=== PATIENT | female | born 1955 | race Caucasian/White ===

== ENCOUNTER 2017-06-18 18:07 | Observation (INO) | payer OTHER ==
[~2017-06-18] VITALS: Ht 152.4 cm; Wt 50.0 kg
[~2017-06-18 18:07] MED LIST: ASPI81TA82 PO; DIPH25 PO; IBUP800 PO; LEVO.15 PO; PRAV40TA2 PO; ZOLO50TA PO
[2017-06-18 18:09] VITALS: BP 154/74; PULSE 76; RESP 15; TEMP 98.6; O2SAT 99
[2017-06-18 18:56] LABS: AUTOMATED NEUTROPHIL # 9.4 TH/MM3 (1.8-7.7); BASOPHIL % 0.3 % (0.0-2.0); EOSINOPHIL % 0.3 % (0.0-4.0); HEMATOCRIT 42.9 % (35.0-46.0); HEMOGLOBIN 15.1 GM/DL (11.6-15.3); LYMPHOCYTE # 1.2 TH/MM3 (1.0-4.8); MEAN CELL VOLUME 94.9 FL (80.0-100.0); MEAN CORPUSCULAR HEMOGLOBIN 33.3 PG (27.0-34.0); MEAN CORPUSCULAR HGB CONC 35.1 % (32.0-36.0); MEAN PLATELET VOLUME 7.5 FL (7.0-11.0); MONO % 3.5 % (0.0-8.0); MONOCYTE # 0.4 TH/MM3 (0-0.9); NEUT % 84.9 % (16.0-70.0); PLATELET COUNT 311 TH/MM3 (150-450); RED BLOOD COUNT 4.53 MIL/MM3 (4.00-5.30)
[2017-06-18 19:07] LABS: ALBUMIN 4.4 GM/DL (3.4-5.0); AST (GOT) 21 U/L (15-37); BICARBONATE 29.4 MEQ/L (21.0-32.0); BLOOD UREA NITROGEN 14 MG/DL (7-18); CALCIUM 8.9 MG/DL (8.5-10.1); CHLORIDE 100 MEQ/L (98-107); CREATININE 0.85 MG/DL (0.50-1.00); GLOMERULAR FILTRATION RATE 67 ML/MIN (>89); GLUCOSE,RANDOM 93 MG/DL (74-106); SODIUM (NA) 135 MEQ/L (136-145)
[2017-06-18 19:09] LABS: ALT (GPT) 25 U/L (10-53)
[2017-06-18 19:12] LABS: ALKALINE PHOSPHATASE 62 U/L (45-117); TOTAL BILIRUBIN ADULT 0.3 MG/DL (0.2-1.0); TOTAL PROTEIN 8.9 GM/DL (6.4-8.2); TROPONIN I LESS THAN 0.02 NG/ML (0.02-0.05)
--- NOTE | 2017-06-18 19:26 | RADRPT ---
EXAM DATE/TIME: 06/18/2017 18:44 [place] COMPARISON: No previous studies available for comparison. INDICATIONS : Evaluate chest, right arm pain with redness and rash MEDICAL HISTORY : None. SURGICAL HISTORY : None. ENCOUNTER: Initial ACUITY: 1 day PAIN SCORE: 0/10 LOCATION: chest FINDINGS: No prior study for comparison. There is a nodule or focal airspace disease in right upper lobe measur ing about 2 cm in diameter. Surgical clips in right axillary region. Left lung is clear. No effusion. No pneumothorax the heart size is normal. CONCLUSION: 1. Nodule or focal airspace disease right upper lobe. Further evaluation with chest CT recommended. L eft lung is clear. Tor Mas MD on June 18, 2017 at 19:23 Board Certified Radiologist. This report was verified electronically.
[2017-06-18 19:54] VITALS: BP 149/68; PULSE 89; RESP 16; TEMP 100.6; O2SAT 99
--- NOTE | 2017-06-18 20:11 | PD ---
HPI Chief Complaint: Medical Clearance Time Seen by Provider: 20:06 Travel History International Travel<30 days: No Contact w/Intl Traveler<30days: No Traveled to known affect area: No History of Present Illness HPI The patient is a 62 year old female who presents to the [facility] emergency department with a history of not feeling well for a couple of days.She reports having increased fatigue. She reports having twitching sensations in her chest muscles. She has had increased difficulty sleeping. At lunch time, she began to have right upper arm pain that moved into her forearm as the day progressed. The pain is a dull aching sensation. She was concerned that this could be cardiac in origin as she has a family history of heart disease. She reports that her last stress test was done approximately 10 years ago. The Patient reports that she does have a history of hypertension and hyperlipidemia. She had a flu shot in the left arm on Sunday. She has had a history of lymph node resection of the left arm 04/1999 related to breast cancer s/p bilateral mastectomy. She has had some sweating. She reports that she has had a cellulitis involving the right arm in the past. She realized when she arrived in the emergency department that she has redness and swelling to the right arm. 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 Incidentally, the patient additionally reports that she is recently had an increase in her thyroid hormone supplementation related to a low TSH. She reports that she over the last couple of weeks has had intermittent sweating thought to be related to this. The patient on arrival is also noted to be febrile. I review systems otherwise, the patient denies having any cough, congestion, neck pain, shortness of breath, abdominal pain, vomiting, diarrhea, urinary symptoms, or neurologic symptoms. The patient incidentally reports that she has dental cleanings every 4 months. She last had a dental cleaning 3 months ago. PCP: Dr. Shanks. FH: [place]. Mother-50s [place], Father- CAD started in his 40s. PFSH Past Medical History Narrative Medical The patient's past medical history is significant for hypothyroidism, breast CA , chronic neck pain, anxiety and depression, Hyperlipidemia, hypertension, insomnia. Cancer: Yes (18 YRS AGO) High Cholesterol: Yes Diminished Hearing: No Hypertension: Yes Influenza Vaccination: Yes : 2 Para: 2 Tubal Ligation: Yes Past Surgical History Narrative Surgical The patient's past surgical history is significant for cholecystectomy, bilateral mastectomy, lymph node resection in the right axilla, , and tonsillectomy. Section: Yes (X 1) Cholecystectomy: Yes Mastectomy: Yes (BILATERAL WITH RECONSTRUCTIVE) Tonsillectomy: Yes Social History Alcohol Use: Yes (WINE WEEKLY) Tobacco Use: No (QUIT 1988) Substance Use: No Allergies-Medications (Allergen,Severity, Reaction): Coded Allergies: No Known Allergies (Unverified Allergy, Unknown, 06/18/17) Reported Meds & Prescriptions Reported Meds & Active Scripts Active Reported Enalapril (Enalapril Maleate) 5 Mg Tab 5 Mg PO DAILY Synthroid (Levothyroxine Sodium) 175 Mcg Tab 175 Mcg PO DAILY Sertraline (Sertraline HCl) 100 Mg Tab 100 Mg PO DAILY Review of Systems Except as stated in HPI: all other systems reviewed are Neg General / Constitutional: Positive: Fever Eyes: No: Visual changes HENT: No: Headaches Cardiovascular: Positive: Chest Pain or Discomfort, Diaphoresis, No: Dyspnea on exertion Respiratory: No: Cough, Shortness of Breath Gastrointestinal: No: Nausea, Vomiting, Diarrhea, Abdominal Pain Genitourinary: No: Dysuria Musculoskeletal: No: Pain Skin: No Rash Neurologic: No: Weakness Psychiatric: No: Depression Endocrine: No: Polydipsia Hematologic/Lymphatic: No: Easy Bruising Physical Exam Narrative General: The patient is a well-developed well-nourished female, flushed appearing on examination with redness her cheeks. Head and Neck exam: Head is normocephalic atraumatic. Eyes: EOMI, pupils are equal round and reactive to light. Nose: Midline septum with pink mucous membranes Mouth: Dentition unremarkable. Moist mucus membranes. Posterior oropharynx is not erythematous. No tonsillar hypertrophy. Uvula midline. Airway patent. Neck: No palpable lymphadenopathy. No nuchal rigidity. No thyromegaly. Cardiovascular: Regular rate and rhythm with a 1/6 systolic murmur. No gallops or rubs. Lungs: Clear to auscultation bilaterally. No wheezes, rhonchi, or rales. Abdomen: Soft, without tenderness to palpation in all 4 quadrants of the abdomen. No guarding, rebound, or rigidity. Normal bowel sounds are audible. No tenderness on palpation of McBurney's point. Extremities: No clubbing, cyanosis, or edema involving all 4 extremities, except the area of interest, the right upper extremity. The patient is noted to have erythema along the medial aspect of her right arm above the elbow that extends past her elbow and it is also involving the dorsal aspect of the right forearm. There is warmth to this area on palpation. There is no crepitus or step-off. No pointing. 2+ pulses in all 4 extremities. Back: No spinous process tenderness to palpation. No costovertebral angle tenderness to palpation. Neurologic Exam: Grossly nonfocal. Skin Exam: No other rash noted. Intact skin that is warm and dry. Data Data Last Documented VS Vital Signs Date Time Temp Pulse Resp B/P (MAP) Pulse Ox O2 Delivery O2 Flow Rate FiO2 06/18/17 19:57 16 06/18/17 19:54 100.6 89 149/68 (95) 99 Room Air Orders Orders Electrocardiogram (06/18/17 18:19) Ckmb (Isoenzyme) Profile (06/18/17 18:19) Complete Blood Count With Diff (06/18/17 18:19) Comprehensive Metabolic Panel (06/18/17 18:19) Magnesium (Mg) (06/18/17 18:19) Prothrombin Time / Inr (Pt) (06/18/17 18:19) Act Partial Throm Time (Ptt) (06/18/17 18:19) Troponin I (06/18/17 18:19) Chest, Pa & Lat (06/18/17 18:19) CKMB (06/18/17 18:35) CKMB% (06/18/17 18:35) Thyroid Stimulating Hormone (06/18/17 20:21) Acetaminophen (Tylenol) (06/18/17 20:30) Cefazolin 2 Gm Premix (Ancef 2 Gm Premix (06/18/17 20:30) Sodium Chlorid 0.9% 500 Ml Inj (Ns 500 M (06/18/17 20:30) Lactic Acid Sepsis Protocol (06/18/17 20:30) Blood Culture (06/18/17 20:30) Piperacil-Tazo 3.375 Gm Premix (Zosyn 3. (06/18/17 20:30) Vancomycin Inj (Vancomycin Inj) (06/18/17 20:30) Ct Thorax/ Chest W Iv Contrast (06/18/17 20:38) Sodium Chlor 0.9% 1000 Ml Inj (Ns 1000 M (06/18/17 21:00) Admit Order (Ed Use Only) (06/18/17 20:58) Labs Laboratory Tests Test 06/18/17 18:35 06/18/17 20:37 06/18/17 20:46 White Blood Count 11.0 TH/MM3 Red Blood Count 4.53 MIL/MM3 Hemoglobin 15.1 GM/DL Hematocrit 42.9 % Mean Corpuscular Volume 94.9 FL Mean Corpuscular Hemoglobin 33.3 PG Mean Corpuscular Hemoglobin Concent 35.1 % Red Cell Distribution Width 13.0 % Platelet Count 311 TH/MM3 Mean Platelet Volume 7.5 FL Neutrophils (%) (Auto) 84.9 % Lymphocytes (%) (Auto) 11.0 % Monocytes (%) (Auto) 3.5 % Eosinophils (%) (Auto) 0.3 % Basophils (%) (Auto) 0.3 % Neutrophils # (Auto) 9.4 TH/MM3 Lymphocytes # (Auto) 1.2 TH/MM3 Monocytes # (Auto) 0.4 TH/MM3 Eosinophils # (Auto) 0.0 TH/MM3 Basophils # (Auto) 0.0 TH/MM3 CBC Comment DIFF FINAL Differential Comment Prothrombin Time 10.0 SEC Prothromb Time International Ratio 1.0 RATIO Activated Partial Thromboplast Time 23.9 SEC Blood Urea Nitrogen 14 MG/DL Creatinine 0.85 MG/DL Random Glucose 93 MG/DL Total Protein 8.9 GM/DL Albumin 4.4 GM/DL Calcium Level 8.9 MG/DL Magnesium Level 2.0 MG/DL Alkaline Phosphatase 62 U/L Aspartate Amino Transf (AST/SGOT) 21 U/L Alanine Aminotransferase (ALT/SGPT) 25 U/L Total Bilirubin 0.3 MG/DL Sodium Level 135 MEQ/L Potassium Level 3.6 MEQ/L Chloride Level 100 MEQ/L Carbon Dioxide Level 29.4 MEQ/L Anion Gap 6 MEQ/L Estimat Glomerular Filtration Rate 67 ML/MIN Total Creatine Kinase 185 U/L Creatine Kinase MB 1.8 NG/ML Troponin I LESS THAN 0.02 NG/ML Thyroid Stimulating Hormone 3rd Gen 2.420 uIU/ML Lactic Acid Level 0.9 mmol/L MDM Medical Decision Making Medical Screen Exam Complete: Yes Emergency Medical Condition: Yes Medical Record Reviewed: Yes Interpretation(s) Last Impressions Chest CT 06/18/172037 Signed Impressions: Service Date/Time: Sunday, June 18, 2017 21:10 - CONCLUSION: 1. 2.2 x 1.7 cm irregular nodule right upper lobe. Differential diagnosis includes malignancy. This may be amenable to CT-guided biopsy. Tor Mas MD Chest X-Ray 06/18/171818 Signed Impressions: Service Date/Time: Sunday, June 18, 2017 18:44 - CONCLUSION: 1. Nodule or focal airspace disease right upper lobe. Further evaluation with chest CT recommended. Left lung is clear. Tor Mas MD Differential Diagnosis Cellulitis, versus erysipelas, versus zoster, versus bacteremia, versus endocarditis, versus hyperthyroid Narrative Course During the course of the patients emergency department visit, the patients history, examination, and differential diagnosis were reviewed with the patient. The patient was placed on a harmonica maker with oximetry and frequent blood pressure monitoring. The patient had IV access obtained and blood work sent for analysis. The patient was initially provided Zosyn 3.375 g IV, vancomycin 1 g IV, normal saline IV fluids were started. The patient is given Tylenol for fever. The patients laboratory studies were reviewed and remarkable for a white count of 11, hemoglobin 15.1, platelets 311 with 84.9, CMP is remarkable for sodium of 135, GFR 67, CPK 185, and BP 1.8, troponin I less than 0.02, PT 10, PTT 23.9 , lactic acid is 0.9. Radiology studies were reviewed and remarkable for a chest x-ray that shows a nodule or focal airspace disease in the right upper lobe of the lung, further evaluation with chest CT is recommended. Left lung is clear. A CT scan of the thorax was ordered. CT scan of the thorax reveals a 2.2 x 1.7 cm irregular nodule in the right upper lobe of the lung, differential diagnosis includes malignancy. This may be amenable to CT-guided biopsy. The patient's results were discussed with the patient, including the plan of care. I explained that further testing and/ or monitoring is indicated based on the patients history, examination, and/ or laboratory findings. Therefore, I recommended admission for additional evaluation. The patient expressed understanding and was agreeable with this plan. The patient was admitted to the hospital in stable condition and sent to a bed under the care of the [facility] service. Physician Communication Physician Communication The patient's case including history, pertinent physical examination findings, and laboratory studies were discussed with Dr. Chau. It was agreed that the patient would be admitted to the [facility] service. Diagnosis Primary Impression: Cellulitis of arm, right Additional Impressions: Lung nodule, solitary Heart murmur previously undiagnosed Admitting Information Admitting Physician Requests: it Krista Brody MD Jun 18, 2017 20:11
[2017-06-18] MEDS ORDERED: PIPERACIL-TAZO 3.375 GM PREMIX 50 ML IV ONE (20:30)
[2017-06-18] MEDS ORDERED: ceFAZolin 2 GM PREMIX 50 ML IV ONE (20:30)
[2017-06-18] MEDS ORDERED: ACETAMINOPHEN 325 MG TAB PO ONE (20:30)
[2017-06-18] MEDS ORDERED: SODIUM CHLORID 0.9% 500 ML INJ 500 ML IV ONE (20:30)
[2017-06-18] MEDS ORDERED: VANCOMYCIN INJ 1,000 MG in SODIUM CHLOR 0.9% 250 ML INJ 250 ML IV ONE (20:30)
[2017-06-18] MEDS ORDERED: IOHEXOL 350 MG/ML 10 ML VIAL (for RAD DIAG) IVCONTRAST ONE ×2 (21:01→21:21)
--- NOTE | 2017-06-18 21:15 | HHI.HP ---
HPI Service [facility] Hospitalists Primary Care Physician Rick Shanks MD Admission Diagnosis Chief Complaint: RUE pain, LGF, atypical right sided chest pain Travel History International Travel<30 Days: No Contact w/Intl Traveler <30 Da: No Traveled to Known Affected Are: No History of Present Illness The patient is a 62 year old female with depression, hypothyroidism hyperlipidemia and distant history of breast cancer who presents to the [facility] emergency department with a history of not feeling well for a couple of days.She reports having increased fatigue. She reports having twitching sensations in her right sided chest muscles. She has had increased difficulty sleeping. At lunch time today, she began to have right upper arm pain that moved into her forearm as the day progressed. The pain is a dull aching sensation. She was concerned that this could be cardiac in origin as she has a family history of heart disease. She reports that her last stress test was done approximately 10 years ago. She had a flu shot in the left arm on Sunday. She has had a history of lymph node resection of the right arm 04/1999 related to breast cancer s/p bilateral mastectomy. She has had some sweating. She reports that she has had a cellulitis involving the right arm in the past. She realized when she removed her shirt after she arrived in the emergency department that she has redness and swelling to the right arm. 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 Incidentally, the patient additionally reports that she is recently had an increase in her thyroid hormone supplementation. She reports that she over the last couple of weeks has had intermittent sweating thought to be related to this. Denies cough or shortness of breath. The patient on arrival is also noted to be febrile. The patient incidentally reports that she has dental cleanings every 4 months. She last had a dental cleaning 3 1/2 months ago. Denies any recent major dental work. Denies IV drug abuse history. Review of Systems Constitutional: COMPLAINS OF: Diaphoretic episodes, Fatigue, Fever, Chills Eyes: DENIES: Blurred vision, Diplopia, Eye inflammation, Eye pain, Vision loss , Photosensitivity, Double Vision Ears, nose, mouth, throat: DENIES: Tinnitus, Hearing loss, Vertigo, Nasal discharge, Oral lesions, Throat pain, Hoarseness, Ear Pain, Running Nose, Epistaxis, Sinus Pain, Toothache, Odynophagia Respiratory: DENIES: Apneas, Cough, Snoring, Wheezing, Hemoptysis, Sputum production, Shortness of breath Cardiovascular: COMPLAINS OF: Chest pain, DENIES: Palpitations, Syncope, Dyspnea on Exertion, PND, Lower Extremity Edema, Orthopnea, Claudication Gastrointestinal: DENIES: Abdominal pain, Black stools, Bloody stools, BRB per rectum, Constipation, Diarrhea, GERD, Nausea, Reflux, Vomiting, Difficulty Swallowing, Anorexia, See HPI Musculoskeletal: DENIES: Joint pain, Muscle aches, Stiffness, Joint Swelling, Back pain, Neck pain Integumentary: COMPLAINS OF: Rash Immunologic/allergic: DENIES: Eczema, Urticaria Neurologic: DENIES: Abnormal gait, Headache, Localized weakness, Paresthesias, Seizures, Speech Problems, Tremor, Poor Balance Psychiatric: COMPLAINS OF: Anxiety Past Family Social History Past Medical History Stage I breast cancer diagnosed in 1998 Hypertension Chronic neck pain Hyperlipidemia Hypothyroidism Anxiety Past Surgical History Carpal tunnel surgery on the left and 2003, on the right in 2004 Bilateral mastectomies in 1998 with right-sided lymph node dissection with all 20 nodes negative Reconstruction bilateral breast 1999 Cholecystectomy 1993 bilateral tubal ligation 1993 1982 tonsillectomy 1960 Colonoscopy 2013 which was negative Reported Medications Benadryl 25 Mg Cap (Diphenhydramine Hcl) 25 Mg Cap 25 Mg PO DAILY Motrin 800 Mg Tab (Ibuprofen) 800 Mg Tab 800 Mg PO BID Aspir-81 (Aspirin) 81 Mg Tab 81 Mg PO DAILY Zoloft (Sertraline HCl) 100 Mg Tab PO DAILY Synthroid (Levothyroxine Sodium) 175 Mcg Tab PO DAILY Pravachol 40 Mg Tab (Pravastatin Sodium) 40 Mg Tab 40 Mg PO DAILY Temazepam 15-30 mg daily at bedtime when necessary Allergies: Coded Allergies: No Known Allergies (Unverified Allergy, Unknown, 06/18/17) Family History Father had diabetes and coronary artery disease Mother had coronary artery disease and lung cancer Social History No tobacco since 1982 prior to that smoked about a pack per day for 10 years Occasionally drinks alcohol in the form of wine on the weekends Denies illicit drug use, specifically no history of IV drug abuse Lives with her 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 SKIN: Erythematous confluence patch with a few surrounding papules in the right medial arm and forearm along what appears to be a dermatomal distribution. Tenderness to palpation noted. No open wounds or discharge. HEAD: Atraumatic. Normocephalic. No temporal or scalp tenderness. EYES: Pupils equal round and reactive. Extraocular motions intact. No scleral icterus. No injection or drainage. ENT: Nose without bleeding, purulent drainage or septal hematoma. Airway patent. Oropharynx clear. Dentition in good repair. NECK: Trachea midline. No JVD or lymphadenopathy. Supple, nontender, no meningeal signs. CARDIOVASCULAR: Regular rate and rhythm with 2 out of 6 primarily holosystolic ejection murmur along the left sternal border, no gallop or rub. RESPIRATORY: Clear to auscultation. Breath sounds equal bilaterally. No wheezes , rales, or rhonchi. GASTROINTESTINAL: Abdomen soft, non-tender, nondistended. No hepato-splenomegaly , or palpable masses. No guarding. MUSCULOSKELETAL: Extremities without clubbing, cyanosis, or edema. No joint tenderness, effusion, or edema noted. No calf tenderness. NEUROLOGICAL: Awake and alert. Cranial nerves II through XII intact. Motor and sensory grossly within normal limits. Five out of 5 muscle strength in all muscle groups. Normal speech. Laboratory Laboratory Tests Test 06/18/17 18:35 White Blood Count 11.0 Red Blood Count 4.53 Hemoglobin 15.1 Hematocrit 42.9 Mean Corpuscular Volume 94.9 Mean Corpuscular Hemoglobin 33.3 Mean Corpuscular Hemoglobin Concent 35.1 Red Cell Distribution Width 13.0 Platelet Count 311 Mean Platelet Volume 7.5 Neutrophils (%) (Auto) 84.9 Lymphocytes (%) (Auto) 11.0 Monocytes (%) (Auto) 3.5 Eosinophils (%) (Auto) 0.3 Basophils (%) (Auto) 0.3 Neutrophils # (Auto) 9.4 Lymphocytes # (Auto) 1.2 Monocytes # (Auto) 0.4 Eosinophils # (Auto) 0.0 Basophils # (Auto) 0.0 CBC Comment DIFF FINAL Differential Comment Prothrombin Time 10.0 Prothromb Time International Ratio 1.0 Activated Partial Thromboplast Time 23.9 Blood Urea Nitrogen 14 Creatinine 0.85 Random Glucose 93 Total Protein 8.9 Albumin 4.4 Calcium Level 8.9 Magnesium Level 2.0 Alkaline Phosphatase 62 Aspartate Amino Transf (AST/SGOT) 21 Alanine Aminotransferase (ALT/SGPT) 25 Total Bilirubin 0.3 Sodium Level 135 Potassium Level 3.6 Chloride Level 100 Carbon Dioxide Level 29.4 Anion Gap 6 Estimat Glomerular Filtration Rate 67 Total Creatine Kinase 185 Creatine Kinase MB 1.8 Troponin I LESS THAN 0.02 Result Diagram: 06/18/17183406/18/171834 Imaging Last 72 hours Impressions Chest X-Ray 06/18/171818 Signed Impressions: Service Date/Time: Sunday, June 18, 2017 18:44 - CONCLUSION: 1. Nodule or focal airspace disease right upper lobe. Further evaluation with chest CT recommended. Left lung is clear. Tor Mas MD Caprini VTE Risk Assessment Caprini VTE Risk Assessment: Mod/High Risk (score >= 2) Caprini Risk Assessment Model Point Value = 1 Point Value = 2 Point Value = 3 Point Value = 5 Age 41-60 Minor surgery BMI > 25 kg/m2 Swollen legs Varicose veins or History of unexplained or recurrent spontaneous Oral contraceptives or hormone replacement Sepsis (< 1 month) Serious lung disease, including pneumonia (< 1 month) Abnormal pulmonary function Acute myocardial infarction Congestive heart failure (< 1 month) History of inflammatory bowel disease Medical patient at bed rest Age 61-74 Arthroscopic surgery Major open surgery (> 45 min) Laparoscopic surgery (> 45 min) Malignancy Confined to bed (> 72 hours) Immobilizing plaster cast Central venous access Age >= 75 History of VTE Family history of VTE Factor V Leiden Prothrombin [id number] Lupus anticoagulant Anticardiolipin antibodies Elevated serum homocysteine Heparin-induced thrombocytopenia Other congenital or acquired thrombophilia Stroke (< 1 month) Elective arthroplasty Hip, pelvis, or leg fracture Acute spinal cord injury (< 1 month) Prophylaxis Regimen Total Risk Factor Score Risk Level Prophylaxis Regimen 0-1 Low Early ambulation 2 Moderate Order ONE of the following: *Sequential Compression Device (SCD) *Heparin 5000 units SQ BID 3-4 Higher Order ONE of the following medications: *Heparin 5000 units SQ TID *Enoxaparin/Lovenox 40 mg SQ daily (WT < 150 kg, CrCl > 30 mL/min) *Enoxaparin/Lovenox 30 mg SQ daily (WT < 150 kg, CrCl > 10-29 mL/min) *Enoxaparin/Lovenox 30 mg SQ BID (WT < 150 kg, CrCl > 30 mL/min) AND/OR *Sequential Compression Device (SCD) 5 or more Highest Order ONE of the following medications: *Heparin 5000 units SQ TID (Preferred with Epidurals) *Enoxaparin/Lovenox 40 mg SQ daily (WT < 150 kg, CrCl > 30 mL/min) *Enoxaparin/Lovenox 30 mg SQ daily (WT < 150 kg, CrCl > 10-29 mL/min) *Enoxaparin/Lovenox 30 mg SQ BID (WT < 150 kg, CrCl > 30 mL/min) AND *Sequential Compression Device (SCD) Assessment and Plan Problem List: (1) Cellulitis of arm, right ICD Codes: L03.113 - Cellulitis of right upper limb Status: Acute Plan: Question of etiology. She has been placed on broad-spectrum IV antibiotics initially. She does have what appears slightly dermatomal distribution of this rash with some vesicles on the outer margins which are tender to palpation. Provide dose of Valtrex. White blood cell count normal. Low-grade fever noted. Other labs pending. (2) Febrile illness ICD Codes: R50.9 - Fever, unspecified Status: Acute Plan: Questionable etiology. She does have abnormality on lung imaging is well and CT scan has been ordered by ER physician. Other labs pending. She has a slight murmur which is apparently new for her. We'll check echo although I am not strongly suspicious of endocarditis based on her clinical exam. (3) Hypothyroidism ICD Codes: E03.9 - Hypothyroidism, unspecified Status: Chronic Plan: Recent increase of Synthroid 175 g a day. Repeat TSH pending. (4) Hypertension ICD Codes: I10 - Essential (primary) hypertension Status: Chronic Plan: Continue medication. (5) Hyperlipidemia ICD Codes: E78.5 - Hyperlipidemia, unspecified Status: Chronic Plan: Continue medication Code Status full Discussed Condition With Patient, her and ER provider. Physician Certification 2 Midnight Certification Type: Admission for Inpatient Services Order for Inpatient Services The services are ordered in accordance with Medicare regulations or non- Medicare payer requirements, as applicable. In the case of services not specified as inpatient-only, they are appropriately provided as inpatient services in accordance with the 2-midnight benchmark. Estimated LOS (days): 2 days is the estimated time the patient will need to remain in the hospital, assuming treatment plan goals are met and no additional complications. Post-Hospital Plan: Home Problem Qualifiers (1) Hypertension: Qualified Codes: I10 - Essential (primary) hypertension Michael Chau MD PhD Jun 18, 2017 21:15
[2017-06-18] MEDS ORDERED: POTASSIUM CHLORIDE 10 MEQ CONTROLLED RELEASE TAB PO ONE (21:30)
[2017-06-18] MEDS ORDERED: Vancomycin Consult Pharmacy 1 EA OTHER SCH (21:30)
[2017-06-18] MEDS: SODIUM CHLOR 0.9% 1000 ML INJ 1,000 ML IV SCH (21:36)
--- NOTE | 2017-06-18 21:38 | RADRPT ---
EXAM DATE/TIME: 06/18/2017 21:10 [facility] COMPARISON: No previous studies available for comparison. INDICATIONS : Right upper lobe nodule versus mass. IV CONTRAST: 70 cc Omnipaque 350 (iohexol) IV RADIATION DOSE: 5.10 CTDIvol (mGy) MEDICAL HISTORY : Hypertension. Carcinoma, breast. SURGICAL HISTORY : Mastectomy, bilateral. ENCOUNTER: Initial ACUITY: 1 day PAIN SCALE: 0/10 LOCATION: Right chest TECHNIQUE: Volumetric scanning of the chest was performed. Using automated exposure control and adjustment of t mA and/or kV according to patient size, radiation dose was kept as low as reasonably achievable to obtain optimal diagnostic quality images. DICOM format image data is available electronically for review and comparison. Follow-up recommendations for detected pulmonary nodules are based at a minimum on nodule size and pa tient risk factors according to Fleischner Society Guidelines. FINDINGS: There is a 2.2 x 1.7 cm irregular mass in the right upper lobe, suspicious for malignancy. There is no hilar or, mediastinal or axillary adenopathy. No pleural or pericardial effusion. There i s previous right axillary lymph node dissection. Previous breast augmentation. No acute findings in t upper abdomen. Previous cholecystectomy. CONCLUSION: 1. 2.2 x 1.7 cm irregular nodule right upper lobe. Differential diagnosis includes malignancy. This m ay be amenable to CT-guided biopsy. Tor Mas MD on June 18, 2017 at 21:32 Board Certified Radiologist. This report was verified electronically.
[2017-06-18 21:39] VITALS: BP 122/58; PULSE 79; RESP 16; O2SAT 98
[2017-06-18] MEDS ORDERED: SERT-129 PO (21:40)
[2017-06-18] MEDS ORDERED: ENAL5TAB PO (21:44)
[2017-06-18] MEDS ORDERED: SYNT175T PO (21:44)
[2017-06-18] MEDS: valACYclovir HCL 500 MG TAB PO SCH (22:00)
[2017-06-18] MEDS ORDERED: TEMAZEPAM 15 MG CAP PO PRN (22:00)
[2017-06-19 00:02] VITALS: BP 120/58; PULSE 76; RESP 20; TEMP 99.5; O2SAT 95
[2017-06-19 04:00] VITALS: BP 111/64; PULSE 79; RESP 20; TEMP 99.8; O2SAT 96
[2017-06-19] MEDS: LEVOTHYROXINE SODIUM 25 MCG TAB PO SCH (07:39)
[2017-06-19] MEDS: LEVOTHYROXINE SODIUM 150 MCG TAB PO SCH (07:39)
[2017-06-19 08:00] VITALS: BP 115/59; PULSE 78; RESP 16; TEMP 99.2; O2SAT 95
[2017-06-19] MEDS: valACYclovir HCL 500 MG TAB PO SCH ×2 (08:26→22:47)
[2017-06-19] MEDS: ENALAPRIL MALEATE 5 MG TAB PO SCH (08:27)
[2017-06-19] MEDS: SODIUM CHLOR 0.9% 1000 ML INJ 1,000 ML IV SCH (08:27)
[2017-06-19] MEDS: ACETAMINOPHEN 500 MG CPLT PO PRN ×2 (08:40→22:46)
[2017-06-19] MEDS ORDERED: NON-FORMULARY DRUG (Levothyroxine (Synthroid) 175 MCG) PO SCH (09:00)
[2017-06-19] MEDS ORDERED: SERTRALINE HCL 100 MG TAB PO SCH (09:00)
--- NOTE | 2017-06-19 10:32 | HHI.PR ---
Subjective Remarks Patient seen resting in bed with family member at bedside Patient and family member feel that the redness has gotten much better RUE continues to be tender to the touch Objective Vitals Vital Signs Date Time Temp Pulse Resp B/P (MAP) Pulse Ox O2 Delivery O2 Flow Rate FiO2 06/19/17 08:00 99.2 78 16 115/59 (77) 95 06/19/17 04:00 99.8 79 20 111/64 (80) 96 06/19/17 00:02 99.5 76 20 120/58 (78) 95 06/18/17 22:25 06/18/17 21:39 79 16 122/58 (79) 98 Room Air 06/18/17 19:57 16 06/18/17 19:54 100.6 89 16 149/68 (95) 99 Room Air 06/18/17 18:09 98.6 76 15 154/74 (100) 99 Result Diagram: 06/18/17 1835 06/18/17 1835 Other Results Laboratory Tests Test 06/18/17 18:35 06/18/17 20:37 06/18/17 20:46 06/19/17 10:04 White Blood Count 11.0 TH/MM3 Red Blood Count 4.53 MIL/MM3 Hemoglobin 15.1 GM/DL Hematocrit 42.9 % Mean Corpuscular Volume 94.9 FL Mean Corpuscular Hemoglobin 33.3 PG Mean Corpuscular Hemoglobin Concent 35.1 % Red Cell Distribution Width 13.0 % Platelet Count 311 TH/MM3 Mean Platelet Volume 7.5 FL Neutrophils (%) (Auto) 84.9 % Lymphocytes (%) (Auto) 11.0 % Monocytes (%) (Auto) 3.5 % Eosinophils (%) (Auto) 0.3 % Basophils (%) (Auto) 0.3 % Neutrophils # (Auto) 9.4 TH/MM3 Lymphocytes # (Auto) 1.2 TH/MM3 Monocytes # (Auto) 0.4 TH/MM3 Eosinophils # (Auto) 0.0 TH/MM3 Basophils # (Auto) 0.0 TH/MM3 CBC Comment DIFF FINAL Differential Comment Prothrombin Time 10.0 SEC Prothromb Time International Ratio 1.0 RATIO Activated Partial Thromboplast Time 23.9 SEC Blood Urea Nitrogen 14 MG/DL Creatinine 0.85 MG/DL Random Glucose 93 MG/DL Total Protein 8.9 GM/DL Albumin 4.4 GM/DL Calcium Level 8.9 MG/DL Magnesium Level 2.0 MG/DL Alkaline Phosphatase 62 U/L Aspartate Amino Transf (AST/SGOT) 21 U/L Alanine Aminotransferase (ALT/SGPT) 25 U/L Total Bilirubin 0.3 MG/DL Sodium Level 135 MEQ/L Potassium Level 3.6 MEQ/L Chloride Level 100 MEQ/L Carbon Dioxide Level 29.4 MEQ/L Anion Gap 6 MEQ/L Estimat Glomerular Filtration Rate 67 ML/MIN Total Creatine Kinase 185 U/L Creatine Kinase MB 1.8 NG/ML Troponin I LESS THAN 0.02 NG/ML Thyroid Stimulating Hormone 3rd Gen 2.420 uIU/ML Lactic Acid Level 0.9 mmol/L Imaging Last 72 hours Impressions Chest X-Ray 06/18/171818 Signed Impressions: Service Date/Time: Sunday, June 18, 2017 18:44 - CONCLUSION: 1. Nodule or focal airspace disease right upper lobe. Further evaluation with chest CT recommended. Left lung is clear. Tor Mas MD Objective Remarks GENERAL: This is a well-nourished, well-developed patient, in no apparent distress. SKIN: Erythematous confluence patch in the right medial arm and forearm along what appears to be a dermatomal distribution. Tenderness to palpation noted. No open wounds or discharge. CARDIOVASCULAR: Regular rate and rhythm 2/6 murmur noted RESPIRATORY: Clear to auscultation. Breath sounds equal bilaterally. GASTROINTESTINAL: Abdomen soft, non-tender, nondistended. Normal active bowel sounds MUSCULOSKELETAL: Extremities without clubbing, cyanosis, or edema. NEURO: Alert & Oriented x4 to person, place, time, situation. Moves all ext x4 A/P Problem List: (1) Cellulitis of arm, right ICD Codes: L03.113 - Cellulitis of right upper limb Status: Acute Plan: Cellulitis of arm, right Question of etiology. She has been placed on broad-spectrum IV antibiotics initially. She does have what appears slightly dermatomal distribution of this rash with some vesicles on the outer margins which are tender to palpation. Provide dose of Valtrex. White blood cell count normal. Low-grade fever noted. Febrile illness Questionable etiology. She does have abnormality on lung imaging is well and CT scan has been ordered by ER physician. She has a slight murmur which is apparently new for her. We'll check echo although I am not strongly suspicious of endocarditis based on her clinical exam. Blood cultures negative x [address] chest Chest CT reviewed and reveals: 2.2x1.7 cm irregular nodule right upper lobe. Differential diagnosis includes malignancy. This may be amenable to CT guided biopsy. Consult Dr. Griffith Results discussed with patient and at bedside. Results also discussed with patient's oncologist Dr. Shanks Will obtain CT abdomen/pelvic to further evaluate. then proceed with bx. Hypothyroidism Recent increase of Synthroid 175 g a day. Repeat TSH 2.42 Hypertension Continue medication. Hyperlipidemia Continue medication (2) Febrile illness ICD Codes: R50.9 - Fever, unspecified Status: Acute Plan: see above (3) Hypothyroidism ICD Codes: E03.9 - Hypothyroidism, unspecified Status: Chronic Plan: see above (4) Hypertension ICD Codes: I10 - Essential (primary) hypertension Status: Chronic Plan: See above (5) Hyperlipidemia ICD Codes: E78.5 - Hyperlipidemia, unspecified Status: Chronic Plan: see above Problem Qualifiers (1) Hypertension: Qualified Codes: I10 - Essential (primary) hypertension Katherine Lopes Jun 19, 2017 10:32
[2017-06-19 11:31] LABS: ALKALINE PHOSPHATASE 48 U/L (45-117); ALT (GPT) 18 U/L (10-53); AST (GOT) 14 U/L (15-37); BICARBONATE 21.8 MEQ/L (21.0-32.0); BLOOD UREA NITROGEN 8 MG/DL (7-18); CALCIUM 7.8 MG/DL (8.5-10.1); CHLORIDE 105 MEQ/L (98-107); CREATININE 0.91 MG/DL (0.50-1.00); GLOMERULAR FILTRATION RATE 62 ML/MIN (>89); GLUCOSE,RANDOM 175 MG/DL (74-106); SODIUM (NA) 139 MEQ/L (136-145); TOTAL BILIRUBIN ADULT 0.2 MG/DL (0.2-1.0); TOTAL PROTEIN 6.6 GM/DL (6.4-8.2)
--- NOTE | 2017-06-19 11:51 | EKG ---
Date Performed: 06/18/2017 Time Performed: 18:28:58 PTAGE: 62 years EKG: Sinus rhythm NORMAL ECG Compared to prior tracing no significant change PREVIOUS TRACING : 04/08/1999 09.31 DOCTOR: Asher Brody Interpretating Date/Time 06/19/2017 11:51:06
[2017-06-19 12:00] VITALS: BP 97/54; PULSE 73; RESP 16; TEMP 98.5; O2SAT 97
[2017-06-19] MEDS ORDERED: PRAV40TA2 PO (13:57)
--- NOTE | 2017-06-19 15:12 | ECHRPT ---
Indication: murm/fever CONCLUSIONS The left ventricular systolic function is normal with an estimated ejection fraction in the range of 55-60%. Normal left ventricular size. [id number] mitral valve regurgitation. Aortic valve sclerosis is present. There is mild tricuspid valve regurgitation. The estimated pulmonary arterial pressure is 41 mmHg. BP: / HR: Rhythm: MEASUREMENTS (Male / Female) Normal Values Technical Quality:Good 2D ECHO LV Diastolic Diameter PLAX 4.0 cm 4.2 - 5.9 / 3.9 - 5.3 cm LV Systolic Diameter PLAX 3.0 cm IVS Diastolic Thickness 1.3 cm 0.6 - 1.0 / 0.6 - 0.9 cm LVPW Diastolic Thickness 0.9 cm 0.6 - 1.0 / 0.6 - 0.9 cm LV Relative Wall Thickness 0.5 RV Internal Dim ED PLAX 2.7 cm M-MODE Aortic Root Diameter MM 3.0 cm LA Systolic Diameter MM 3.0 cm LA Ao Ratio MM 1.0 AV Cusp Separation MM 1.7 cm DOPPLER Mitral E Point Velocity 88.4 cm/s Mitral A Point Velocity 85.4 cm/s Mitral E to A Ratio 1.0 LV E' Lateral Velocity 8.8 cm/s Mitral E to LV E' Lateral Ratio 10.1 LV E' Septal Velocity 9.8 cm/s Mitral E to LV E' Septal Ratio 9.1 TR Peak Velocity 276.0 cm/s TR Peak Gradient 30.5 mmHg Right Atrial Pressure 10.0 mmHg Pulmonary Artery Systolic Pressu 40.5 mmHg Right Ventricular Systolic Press 40.5 mmHg FINDINGS LEFT VENTRICLE The left ventricular systolic function is normal with an estimated ejection fraction in the range of 55-60%. Normal left ventricular size. RIGHT VENTRICLE Normal right ventricular size and systolic function. LEFT ATRIUM The left atrial size is normal. RIGHT ATRIUM The right atrial size is normal. ATRIAL SEPTUM Normal atrial septal thickness without atrial level shunting by limited color doppler interrogation. AORTA The aortic root and proximal ascending aorta are normal in size on limited imaging. MITRAL VALVE Structurally normal mitral valve. [id number] mitral valve regurgitation. AORTIC VALVE Trileaflet aortic valve. No aortic valve regurgitation. Aortic valve sclerosis is present. TRICUSPID VALVE Structurally normal tricuspid valve. There is mild tricuspid valve regurgitation. The estimated pulmonary arterial pressure is 40.5 mmHg. PULMONARY VALVE No pulmonary valve regurgitation or stenosis. VESSELS The inferior vena cava is normal in size. PERICARDIUM No pericardial effusion. Julee Chahal MD, FACC (Electronically Signed) Final Date:19 June 2017 15:11
[2017-06-19] MEDS ORDERED: POTASSIUM CHLORIDE 10 MEQ CONTROLLED RELEASE TAB PO ONE (15:30)
[2017-06-19 16:00] VITALS: BP 125/69; PULSE 71; RESP 16; TEMP 98.5; O2SAT 97
[2017-06-19] MEDS: 1/2 NS + KCL 20 MEQ INJ 1,000 ML IV SCH (16:21)
[2017-06-19] MEDS ORDERED: DIATRIZOATE MEGLUM/DIATRIZOATE SOD 9 ML CUP PO ONE (16:30)
[2017-06-19 20:00] VITALS: BP 128/70; PULSE 68; RESP 18; TEMP 100.7; O2SAT 97
[2017-06-19] MEDS ORDERED: VANCOMYCIN INJ 750 MG in SODIUM CHLOR 0.9% 250 ML INJ 250 ML IV SCH (21:00)
--- NOTE | 2017-06-19 21:26 | MB ---
cc: LUX MORGAN MD DATE OF CONSULTATION 06/19/17 REASON FOR CONSULTATION History of breast cancer with cellulitis right arm and area of nodularity in the right lung. PATIENT PROFILE The patient is a 60-year white female. She is . She has two children, a son and daughter. She was born [facility]. 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 She has not smoked for 30 years and had smoked in the past for approximately 20 years, half-a-pack a day. Alcohol intake is social. HISTORY OF PRESENT ILLNESS The patient is a 60-year-old female who I saw many years ago for breast cancer and became her primary care physician. She had bilateral mastectomies in 1998. The right breast contained an invasive lobular carcinoma. Lymph nodes were negative, approximate tumor size 1.6 cm. She received four cycles of Adriamycin and Taxotere and subsequently tamoxifen and then Arimidex. She has had no evidence of recurrent breast cancer. She has a history of hypothyroidism on Synthroid, and elevated cholesterol and takes Pravastatin. She has had problems with depression and uses Sertraline. Her immediate problem dates back to about 24 hours ago. She noted right upper arm and vague right chest discomfort. She has been under a great deal of pressure, and thought that she might be having a heart attack. She went to the emergency room and, on examination, was found to have a cellulitis of the right arm. She underwent a routine chest x-ray on 06/18/2017 as part of her workup and was found to have a nodule or focal airspace disease in the right upper lobe. A CT of the thorax was recommended and done on 06/18/2017. This shows a 2.2 x 1.7 cm irregular mass in the right upper lobe which is felt to be suspicious for malignancy. There was no evidence of adenopathy. She has bilateral chest wall implants following her mastectomies. She has had no history of cough, shortness of breath or sputum production to suggest a respiratory tract infection. Approximately four years ago, she had a PET scan done when there was a question of recurrent disease and there was nothing in the lung and, therefore, this finding is new. PAST SURGICAL HISTORY 1. Colonoscopy in 2014 2. Carpal tunnel release in 2003 left side and 2004 right side 3. Bilateral mastectomies 1998 for pathologic T1c N0 M0 invasive lobular carcinoma of the right breast followed by bilateral reconstruction in 1999. 4. Cholecystectomy 1993 5. Tubal ligation 1993 6. C section 7. Tonsillectomy. PAST MEDICAL HISTORY 1. 1998 -Pathologic T1c N0 M0 carcinoma of the right breast status post bilateral mastectomies followed by four cycles of Adriamycin and Taxotere and then briefly treatment with tamoxifen and Arimidex over 18 months. 2. Insomnia 3. Hypothyroidism 4. Elevated cholesterol 5. In 2013, the patient had severe neck pain and was found to have an acute inflammatory process at C2-C4 area. She had a PET scan at that time and there was nothing in the lung 6: Hypertension MEDICATIONS Prior to admission, 1. Pravastatin 40 mg a day 2. Vasotec 5 mg a day 3. Zoloft 100 mg a day 4. Synthroid 175 mcg a day. ALLERGIES None. FAMILY HISTORY Mother age 59 of what sounds like lung cancer or less likely breast cancer. Father at 69 of complications of coronary artery bypass surgery. The patient has a brother and sister who are living. REVIEW OF SYSTEMS No change in vision or hearing. No history of chest pain other than recent discomfort right arm and right upper chest area. No shortness of breath, cough, no abdominal or pelvic pain. No weight loss. No dysuria, frequency, hematuria. No vaginal bleeding. No muscular pain other than mild arthritis. No neurologic problems. Psychiatric notable for anxiety and depression which is mild and chronic. LABORATORY DATA Hemoglobin 15, white count 11,000, platelets 311,000. Lytes, BUN, creatinine, liver function tests unremarkable except for glucose of 175, albumin is 3.0 and potassium 3.3. TSH is 2.4. PHYSICAL EXAMINATION GENERAL: The patient appears well. VITAL SIGNS: Blood pressure 125/70, respiratory rate 16, pulse 70 afebrile. O2 sat of 97%. HEENT: Head is normocephalic. Sclerae and conjunctivae are normal. Oropharynx unremarkable. There is no cervical, supraclavicular, axillary or inguinal adenopathy. BREASTS: bilateral mastectomies with implants bilaterally. There is no local recurrence. HEART: Regular rhythm. I cannot detect a murmur in spite of the fact that one was detected on admission. LUNGS: Clear without rales, wheezes or rhonchi. ABDOMEN: Soft without hepatosplenomegaly or masses. EXTREMITIES: No edema. MUSCULOSKELETAL: No bone pain. NEUROLOGIC: No weakness. PSYCHIATRIC: affect normal. SKIN: There is cellulitis over the right forearm and upper arm. ASSESSMENT 1. The patient has a cellulitis involving the right arm. The mastectomy was and and axillary dissection was on the right side with the removal of 20 lymph nodes. It is likely she was predisposed to developing a cellulitis given her previous surgery. Plan -for antibiotics 2. She has an unusually shaped lesion in the right lung measuring approximately 2.2 x 1.7 cm. I have spoken with Rustam Mas who is the radiologist. This is not a classic presentation for a malignancy in the sense that it is not round but oddly shaped. A scar cancer comes to mind or an inflammatory process not related to malignancy. Given her previous history of breast cancer and the current presentation, the patient will have a CT scan of the abdomen and pelvis. Regarding options, one could treat with antibiotics and repeat a CAT scan of the thorax in four weeks. Another option is simply to proceed with a needle biopsy of the lung lesion now given the high suspicion by the radiologist for a malignancy. This was discussed with the patient and she will go ahead with a needle biopsy of the right lung lesion. Therefore, in summary the patient will have a CT scan of the abdomen and pelvis. If this is unrevealing, she will have a needle biopsy of the right lung. She will continue antibiotics. Hopefully, she will be able to go home by Sunday on oral antibiotics. I discussed her case earlier with Dr. Escobar. Presently It does not appear that we are dealing with recurrent breast cancer as it would be unusual to have a single metastatic lesion to the lung 18 years after her original diagnosis. MD ASHLEY Suarez/ /8:40 PM /8:59 PM [facility]EN[facility]
--- NOTE | 2017-06-19 21:41 | RADRPT ---
EXAM DATE/TIME: 06/19/2017 21:05 [facility] COMPARISON: No previous studies available for comparison. INDICATIONS : Evaluate for metastatic disease. History of breast cancer. IV CONTRAST: 90 cc Omnipaque 350 (iohexol) IV ORAL CONTRAST: Partial prescribed oral contrast ingested. RADIATION DOSE: 8.95 CTDIvol (mGy) MEDICAL HISTORY : Cardiovascular disease. Hypertension. Carcinoma, breast. SURGICAL HISTORY : Mastectomy, bilateral. Cholecystectomy.Tubal ligation. ENCOUNTER: Initial ACUITY: 1 day PAIN SCALE: 0/10 LOCATION: abdomen TECHNIQUE: Volumetric scanning of the abdomen and pelvis was performed. Using automated exposure control and ad justment of the mA and/or kV according to patient size, radiation dose was kept as low as reasonably achievable to obtain optimal diagnostic quality images. DICOM format image data is available electro nically for review and comparison. FINDINGS: LOWER LUNGS: The visualized lower lungs are clear. LIVER: Homogeneous density without lesion. There is no dilation of the biliary tree. Previous cholecystecto my. SPLEEN: Normal size without lesion. PANCREAS: Within normal limits. KIDNEYS: Normal in size and shape. There is no mass, stone or hydronephrosis. ADRENAL GLANDS: Within normal limits. VASCULAR: There is no aortic aneurysm. BOWEL/MESENTERY: The stomach, small bowel, and colon demonstrate no acute abnormality. There is no free intraperitone al air or fluid. ABDOMINAL WALL: Within normal limits. RETROPERITONEUM: There is no lymphadenopathy. BLADDER: No wall thickening or mass. REPRODUCTIVE: Within normal limits. INGUINAL: There is no lymphadenopathy or hernia. MUSCULOSKELETAL: Within normal limits for patient age. CONCLUSION: 1. Negative for metastatic disease in the abdomen and pelvis. Previous cholecystectomy. No acute find ings. Tor Mas MD on June 19, 2017 at 21:37 Board Certified Radiologist. This report was verified electronically.
[2017-06-19] MEDS: PRAVASTATIN SOD 40 MG TAB PO SCH (22:47)
[2017-06-19] MEDS: SERTRALINE HCL 100 MG TAB PO SCH (22:47)
[2017-06-19] MEDS: VANCOMYCIN 1,000 MG/NS 250 ML IV SCH ×2 (22:47)
[2017-06-20] VITALS (8 sets, daily range): BP systolic 106–144; BP diastolic 55–81; PULSE 60–94; RESP 16–20; TEMP 97.9–99; O2SAT 92–96
[2017-06-20] MEDS: LEVOTHYROXINE SODIUM 25 MCG TAB PO SCH (06:12)
[2017-06-20] MEDS: LEVOTHYROXINE SODIUM 150 MCG TAB PO SCH (06:12)
[2017-06-20] MEDS: 1/2 NS + KCL 20 MEQ INJ 1,000 ML IV SCH (06:13)
[2017-06-20] MEDS: ACETAMINOPHEN 500 MG CPLT PO PRN ×2 (06:17→17:28)
[2017-06-20] MEDS: ENALAPRIL MALEATE 5 MG TAB PO SCH (07:47)
[2017-06-20] MEDS: valACYclovir HCL 500 MG TAB PO SCH (07:48)
[2017-06-20] MEDS ORDERED: PNEUMOCOCCAL POLYVALENT INJ 25 MCG/0.5 ML SYR IM ONE (10:00)
--- NOTE | 2017-06-20 10:43 | HHI.PR ---
Subjective Remarks No new complaints this morning Pt planned for CT guided lung biopsy today Objective Vitals Vital Signs Date Time Temp Pulse Resp B/P (MAP) Pulse Ox O2 Delivery O2 Flow Rate FiO2 06/20/17 08:00 98.4 67 17 106/55 (72) 96 06/20/17 00:00 97.9 60 18 135/60 (85) 94 06/19/17 20:00 100.7 68 18 128/70 (89) 97 06/19/17 16:00 98.5 71 16 125/69 (87) 97 06/19/17 12:00 98.5 73 16 97/54 (68) 97 Result Diagram: 06/18/17 1835 06/19/17 1004 Other Results Laboratory Tests Test 06/18/17 18:35 06/18/17 20:37 06/18/17 20:46 06/19/17 10:04 White Blood Count 11.0 TH/MM3 Red Blood Count 4.53 MIL/MM3 Hemoglobin 15.1 GM/DL Hematocrit 42.9 % Mean Corpuscular Volume 94.9 FL Mean Corpuscular Hemoglobin 33.3 PG Mean Corpuscular Hemoglobin Concent 35.1 % Red Cell Distribution Width 13.0 % Platelet Count 311 TH/MM3 Mean Platelet Volume 7.5 FL Neutrophils (%) (Auto) 84.9 % Lymphocytes (%) (Auto) 11.0 % Monocytes (%) (Auto) 3.5 % Eosinophils (%) (Auto) 0.3 % Basophils (%) (Auto) 0.3 % Neutrophils # (Auto) 9.4 TH/MM3 Lymphocytes # (Auto) 1.2 TH/MM3 Monocytes # (Auto) 0.4 TH/MM3 Eosinophils # (Auto) 0.0 TH/MM3 Basophils # (Auto) 0.0 TH/MM3 CBC Comment DIFF FINAL Differential Comment Prothrombin Time 10.0 SEC Prothromb Time International Ratio 1.0 RATIO Activated Partial Thromboplast Time 23.9 SEC Blood Urea Nitrogen 14 MG/DL 8 MG/DL Creatinine 0.85 MG/DL 0.91 MG/DL Random Glucose 93 MG/DL 175 MG/DL Total Protein 8.9 GM/DL 6.6 GM/DL Albumin 4.4 GM/DL 3.0 GM/DL Calcium Level 8.9 MG/DL 7.8 MG/DL Magnesium Level 2.0 MG/DL Alkaline Phosphatase 62 U/L 48 U/L Aspartate Amino Transf (AST/SGOT) 21 U/L 14 U/L Alanine Aminotransferase (ALT/SGPT) 25 U/L 18 U/L Total Bilirubin 0.3 MG/DL 0.2 MG/DL Sodium Level 135 MEQ/L 139 MEQ/L Potassium Level 3.6 MEQ/L 3.3 MEQ/L Chloride Level 100 MEQ/L 105 MEQ/L Carbon Dioxide Level 29.4 MEQ/L 21.8 MEQ/L Anion Gap 6 MEQ/L 12 MEQ/L Estimat Glomerular Filtration Rate 67 ML/MIN 62 ML/MIN Total Creatine Kinase 185 U/L Creatine Kinase MB 1.8 NG/ML Troponin I LESS THAN 0.02 NG/ML Thyroid Stimulating Hormone 3rd Gen 2.420 uIU/ML Lactic Acid Level 0.9 mmol/L Imaging Last Impressions Abdomen/Pelvis CT 06/19/17 0000 Signed Impressions: Service Date/Time: Monday, June 19, 2017 21:05 - CONCLUSION: 1. Negative for metastatic disease in the abdomen and pelvis. Previous cholecystectomy. No acute findings. Tor Mas MD Chest CT 06/18/172037 Signed Impressions: Service Date/Time: Sunday, June 18, 2017 21:10 - CONCLUSION: 1. 2.2 x 1.7 cm irregular nodule right upper lobe. Differential diagnosis includes malignancy. This may be amenable to CT-guided biopsy. Tor Mas MD Chest X-Ray 06/18/171818 Signed Impressions: Service Date/Time: Sunday, June 18, 2017 18:44 - CONCLUSION: 1. Nodule or focal airspace disease right upper lobe. Further evaluation with chest CT recommended. Left lung is clear. Tor Mas MD Last 72 hours Impressions Chest X-Ray 06/18/171818 Signed Impressions: Service Date/Time: Sunday, June 18, 2017 18:44 - CONCLUSION: 1. Nodule or focal airspace disease right upper lobe. Further evaluation with chest CT recommended. Left lung is clear. Tor Mas MD Objective Remarks GENERAL: NAD, AAOx3 SKIN: Erythematous confluence patch in the right medial arm and forearm along what appears to be a dermatomal distribution, improving. Tenderness to palpation noted. No open wounds or discharge. CARDIO: Regular, 2/6 murmur noted RESP: CTA bilaterally. ABD: +BS, soft, non-tender, nondistended. EXT: Extremities without clubbing, cyanosis, or edema. A/P Problem List: (1) Cellulitis of arm, right ICD Codes: L03.113 - Cellulitis of right upper limb Status: Acute Plan: Cellulitis of arm, right - Question of etiology. She does have what appears slightly dermatomal distribution of this rash with some vesicles on the outer margins which are tender to palpation. - She has been placed on broad-spectrum IV antibiotics with improvement - Pt started on Valtrex 1000mg po Q12H. - White blood cell count normal. Low-grade fever noted. Febrile illness - Questionable etiology. - She does have abnormality on lung imaging - She has a slight murmur which is apparently new for her. - We'll check echo although I am not strongly suspicious of endocarditis based on her clinical exam. - Blood cultures negative x [address] chest - Chest CT reviewed and reveals: 2.2x1.7 cm irregular nodule right upper lobe. Differential diagnosis includes malignancy. This may be amenable to CT guided biopsy. - Case discussed between Dr. Escobar and Dr. Griffith on 06/20 - Results discussed with patient and at bedside. - CT abdomen/pelvis negative for any evidence of metastatic disease - Pt is planned for CT guided lung biopsy today Hypothyroidism - Recent increase of Synthroid 175 g a day. - Repeat TSH 2.42 Hypertension - Continue medication. Hyperlipidemia - Continue medication (2) Febrile illness ICD Codes: R50.9 - Fever, unspecified Status: Acute Plan: see above (3) Hypothyroidism ICD Codes: E03.9 - Hypothyroidism, unspecified Status: Chronic Plan: see above (4) Hypertension ICD Codes: I10 - Essential (primary) hypertension Status: Chronic Plan: See above (5) Hyperlipidemia ICD Codes: E78.5 - Hyperlipidemia, unspecified Status: Chronic Plan: see above Assessment and Plan Patient examined. Assessment and plan formulated with Kasie Solomon PA-C. I agree with the above. right arm cellulitis better. cont vanco and convert to po abx tomorrow lung bx of right lung mass today..send for path and cx's to exclude infectious process discussed with DR Shanks..He will fu path in office. Problem Qualifiers (1) Hypertension: Qualified Codes: I10 - Essential (primary) hypertension Kasie Solomon Jun 20, 2017 10:43 Rick Escobar MD Jun 20, 2017 11:30
[2017-06-20 12:12] LABS: BICARBONATE 25.2 MEQ/L (21.0-32.0); CALCIUM 8.4 MG/DL (8.5-10.1); CREATININE 0.63 MG/DL (0.50-1.00)
[2017-06-20] MEDS ORDERED: MIDAZOLAM HCL 2 MG/2 ML VIAL ONE ×2 (13:29)
[2017-06-20] MEDS ORDERED: LIDOCAINE 1%/EPINEPHrine 1:100,000 SOLN 20 ML VIAL ONE (14:03)
[2017-06-20] MEDS ORDERED: oxyCODONE/ACETAMINOPHEN 5 MG/325 MG TAB PO PRN (15:15)
--- NOTE | 2017-06-20 15:15 | PD.RAD ---
Post CT Procedure Prog Note Pre Procedure Diagnosis: (1) Lung nodule, solitary Post Procedure Diagnosis: (1) Lung nodule, solitary Procedure Date: Jun 20, 2017 Supervising Radiologist: Hector Lees Proceduralist/Assist: max andres Estimated blood loss: none Anesthesia: Conscious Sedation Plan of Activity Patient to Unit: ROPU Patient Condition: Good See PACS Report for procedural detail/treatment Hector Lees MD Jun 20, 2017 15:15
--- NOTE | 2017-06-20 15:41 | RADRPT ---
EXAM DATE/TIME: 06/20/2017 15:21 [facility] COMPARISON: CT THORAX W CONTRAST, June 18, 2017, 21:10. INDICATIONS : Post right lung biopsy MEDICAL HISTORY : Cardiovascular disease. Hypertension. Carcinoma, breast SURGICAL HISTORY : Mastectomy, bilateral. Cholecystectomy.Tubal ligation ENCOUNTER: Initial ACUITY: 1 day PAIN SCORE: 0/10 LOCATION: Right chest FINDINGS: A single frontal expiratory view of the chest was performed. A very small right apical pneumothorax i s noted. Right upper lobe mass is again identified. Chest is otherwise stable compared to prior CT. CONCLUSION: Small right apical pneumothorax following biopsy. Jose Francisco Barron MD on June 20, 2017 at 15:37 Board Certified Radiologist. This report was verified electronically.
--- NOTE | 2017-06-20 16:13 | RADRPT ---
EXAM DATE/TIME: 06/20/2017 14:22 [facility] COMPARISON: No previous studies available for comparison. INDICATIONS : Right lung mass. SEDATION TIME: 15 minutes BIOPSY SITE: Right lung MEDICATION(S): 1.) 1.5 mg midazolam (Versed) IV 2.) 75 mcg fentanyl (Sublimaze) IV DEVICE(S): 1.) 18 gauge Chen blunt needle 5cm 2.) 20 gauge Temno core biopsy needle 11cm MEDICAL HISTORY : Carcinoma, breast. SURGICAL HISTORY : Mastectomy, bilateral. Cholecystectomy. Tubal ligation. ENCOUNTER: Initial ACUITY: 1 day PAIN SCORE: 0/10 LOCATION: Right chest A total of one core specimen(s) were obtained and sent to the laboratory for pathologic evaluation. PROCEDURE: 1. CT guided lung biopsy. 2. Conscious sedation with continuous EKG and oximetry monitoring. Prior to the procedure informed consent was obtained. Any appropriate prior imaging studies were rev iewed. Using automated exposure control and adjustment of the mA and/or kV according to patient size, radiation dose was kept as low as reasonably achievable to obtain optimal diagnostic quality images. DICOM format image data is available electronically for review and comparison. The site was prepped in a sterile fashion. Full sterile technique was used, including cap, mask, akiko rile gloves and gown and a large sterile sheet. Hand hygiene and 2% chlorhexidine and/or betadine/al cohol prep was utilized per protocol for cutaneous antisepsis. The skin and subcutaneous tissues wer e infiltrated with local anesthetic solution. With CT guidance the previously identified target was localized. Biopsy was performed using the presc ribed needle as above. Adequate hemostasis was obtained with compression at the puncture site. Follow-up CT scan reveals tiny pneumothorax. Conscious sedation was performed with the prescribed dosages and duration as above in the presence of an independent trained radiology nurse to assist in the monitoring of the patient. EKG and oximetry remained stable throughout the procedure. The patient tolerated the procedure well and there were no complications. The patient was sent to Radiology Outpatient Unit in stable condition. CONCLUSION: Successful CT guided biopsy. Tiny apical pneumothorax. Hector Lees MD on June 20, 2017 at 16:10 Board Certified Radiologist. This report was verified electronically.
--- NOTE | 2017-06-20 16:19 | RADRPT ---
EXAM DATE/TIME: 06/20/2017 16:01 [facility] COMPARISON: CHEST EXPIRATION ONLY, June 20, 2017, 15:21. INDICATIONS : Pneumothorax. MEDICAL HISTORY : Cardiovascular disease. Hypertension Carcinoma, breast. SURGICAL HISTORY : Cholecystectomy. bilateral mastectomy, tubal ligation ENCOUNTER: Initial ACUITY: 2 days PAIN SCORE: 0/10 LOCATION: Bilateral chest FINDINGS: There is a stable trace right apical pneumothorax. Redemonstration of mass in the right upper lobe. R emainder of exam is unchanged. CONCLUSION: 1. Stable trace right apical pneumothorax. Ochoa Aldridge MD on June 20, 2017 at 16:16 Board Certified Radiologist. This report was verified electronically.
--- NOTE | 2017-06-20 19:56 | PD.ONC.PN ---
Subjective Subjective Remarks feeling better. right arm swelling and redness less Objective Data Date Time Temp Pulse Resp B/P (MAP) Pulse Ox O2 Delivery O2 Flow Rate FiO2 06/20/17 16:45 73 18 132/81 (98) 96 06/20/17 16:15 94 20 115/62 (79) 94 06/20/17 15:45 67 18 108/67 (81) 94 06/20/17 15:30 98.3 61 16 125/74 (91) 92 06/20/17 12:00 98.1 68 17 116/66 (83) 95 06/20/17 08:00 98.4 67 17 106/55 (72) 96 06/20/17 00:00 97.9 60 18 135/60 (85) 94 06/19/17 20:00 100.7 68 18 128/70 (89) 97 06/20/17 06/20/17 06/20/17 07:00 15:00 23:00 Intake Total 1550 ml 600 ml Output Total 400 ml Balance 1150 ml 600 ml Result Diagram: 06/18/17 1835 06/20/17 1003 Laboratory Results Laboratory Tests Test 06/20/17 10:03 Blood Urea Nitrogen 8 MG/DL Creatinine 0.63 MG/DL Random Glucose 136 MG/DL Calcium Level 8.4 MG/DL Sodium Level 141 MEQ/L Potassium Level 3.6 MEQ/L Chloride Level 107 MEQ/L Carbon Dioxide Level 25.2 MEQ/L Anion Gap 9 MEQ/L Estimat Glomerular Filtration Rate 95 ML/MIN Culture Results Microbiology Date/Time Source Procedure Growth Status 06/18/17 20:41 Blood Peripheral Aerobic Blood Culture - Preliminary NO GROWTH IN 2 DAYS Resulted 06/18/17 20:41 Blood Peripheral Anaerobic Blood Culture - Preliminary NO GROWTH IN 2 DAYS Resulted 06/18/17 20:41 Blood Peripheral Aerobic Blood Culture - Preliminary NO GROWTH IN 2 DAYS Resulted 06/18/17 20:41 Blood Peripheral Anaerobic Blood Culture - Preliminary NO GROWTH IN 2 DAYS Resulted Imaging Studies Last 48 hours Impressions Lung Biopsy CT 06/20/17 0000 Signed Impressions: Service Date/Time: Tuesday, June 20, 2017 14:22 - CONCLUSION: Successful CT guided biopsy. Tiny apical pneumothorax. Hector Lees MD Chest X-Ray 06/20/17 0000 Signed Impressions: Service Date/Time: Tuesday, June 20, 2017 16:01 - CONCLUSION: 1. Stable trace right apical pneumothorax. Ochoa Aldridge MD Chest X-Ray 06/20/17 0000 Signed Impressions: Service Date/Time: Tuesday, June 20, 2017 15:21 - CONCLUSION: Small right apical pneumothorax following biopsy. Jose Francisco Barron MD Abdomen/Pelvis CT 06/19/17 0000 Signed Impressions: Service Date/Time: Monday, June 19, 2017 21:05 - CONCLUSION: 1. Negative for metastatic disease in the abdomen and pelvis. Previous cholecystectomy. No acute findings. Tor Mas MD Chest CT 06/18/[id number] Signed Impressions: Service Date/Time: Sunday, June 18, 2017 21:10 - CONCLUSION: 1. 2.2 x 1.7 cm irregular nodule right upper lobe. Differential diagnosis includes malignancy. This may be amenable to CT-guided biopsy. Tor Mas MD Last 24 hours Impressions Lung Biopsy CT 06/20/17 0000 Signed Impressions: Service Date/Time: Tuesday, June 20, 2017 14:22 - CONCLUSION: Successful CT guided biopsy. Tiny apical pneumothorax. Hector Lees MD Chest X-Ray 06/20/17 0000 Signed Impressions: Service Date/Time: Tuesday, June 20, 2017 16:01 - CONCLUSION: 1. Stable trace right apical pneumothorax. Ochoa Aldridge MD Chest X-Ray 06/20/17 0000 Signed Impressions: Service Date/Time: Tuesday, June 20, 2017 15:21 - CONCLUSION: Small right apical pneumothorax following biopsy. Jose Francisco Barron MD Administered Medications Medications (Trade) Dose Ordered Sig/Lashell Route PRN Reason Start Time Stop Time Status Last Admin Dose Admin Valacyclovir HCl (Valtrex) 1,000 mg Q12HR PO 06/18/17 21:30 06/20/17 07:48 Acetaminophen (Tylenol) 500 mg Q6H PRN PO fever 06/18/17 22:00 06/20/17 17:28 Enalapril Maleate (Vasotec) 5 mg DAILY PO 06/19/17 09:00 06/20/17 07:47 Levothyroxine Sodium (Synthroid) 150 mcg DAILY@0600 PO 06/19/17 06:00 06/20/17 06:12 Levothyroxine Sodium (Synthroid) 25 mcg DAILY@0600 PO 06/19/17 06:00 06/20/17 06:12 Vancomycin HCl 1000 mg/Sodium Chloride 250 ml @ 250 mls/hr Q24H IV 06/19/17 21:00 06/19/17 22:47 Sertraline HCl (Zoloft) 100 mg HS PO 06/19/17 21:00 06/19/17 22:47 Pravastatin Sodium (Pravachol) 40 mg HS PO 06/19/17 21:00 06/19/17 22:47 Objective Remarks GENERAL: feels well SKIN: Warm and dry. HEAD: Normocephalic. EYES: No scleral icterus. No injection or drainage. NECK: Supple, trachea midline. No JVD or lymphadenopathy. LYMPHATIC: No adenopathy. CARDIOVASCULAR: Regular rate and rhythm without murmurs. RESPIRATORY: Breath sounds equal bilaterally. No accessory muscle use. GASTROINTESTINAL: Abdomen soft, non-tender, nondistended. EXTREMITIES: right arm less swollen and red MUSCULOSKELETAL: Adequate muscle tone. NEUROLOGICAL: No obvious focal deficit. Awake, alert, and oriented x3. PSYCHIATRIC: Appropriate mood and affect; insight and judgment normal. Assessment/Plan Assessment 1: cellulitis improved and hopefully can be transitioned to PO antibiotic in next 1-2 days and discharged home. can stop valtrex in am as not consistent with shingles at present. 2: ct of abd and pelvis- no evidence of malignancy 3: await results of lung bx and hopefully this will be negative. Even if negative she will require follow up studies. Rick Shanks MD Jun 20, 2017 19:56
[2017-06-20] MEDS: SERTRALINE HCL 100 MG TAB PO SCH (20:47)
[2017-06-20] MEDS: PRAVASTATIN SOD 40 MG TAB PO SCH (20:47)
[2017-06-20] MEDS: VANCOMYCIN 1,000 MG/NS 250 ML IV SCH ×2 (20:47)
[2017-06-21] VITALS: BP 110/61; PULSE 68; RESP 16; TEMP 97.9; O2SAT 96
[2017-06-21] MEDS ORDERED: POVIDONE IODINE 5% (ANTISEPSIS KIT) 4 APPLICATIONS EACH NARE PRN (03:45)
[2017-06-21] MEDS ORDERED: CHLORHEXIDINE GLUCONATE 2 % 1 PACK (2 CLOTHS) TOPICAL PRN (03:45)
[2017-06-21] MEDS ORDERED: LACTATED RINGER'S 1000 ML IV PRN (03:45)
[2017-06-21] MEDS: LEVOTHYROXINE SODIUM 25 MCG TAB PO SCH (05:08)
[2017-06-21] MEDS: LEVOTHYROXINE SODIUM 150 MCG TAB PO SCH (05:08)
[2017-06-21] MEDS: ACETAMINOPHEN 500 MG CPLT PO PRN (05:09)
[2017-06-21 08:00] VITALS: BP 113/66; PULSE 72; RESP 16; TEMP 97.7; O2SAT 97
--- NOTE | 2017-06-21 08:16 | RADRPT ---
EXAM DATE/TIME: 06/21/2017 07:59 [facility] COMPARISON: CHEST EXPIRATION ONLY, June 20, 2017, 16:01. INDICATIONS : Right apical pneumothorax MEDICAL HISTORY : Cardiovascular disease. Hypertension Carcinoma, breast. SURGICAL HISTORY : Cholecystectomy. bilateral mastectomy, tubal ligation ENCOUNTER: Subsequent ACUITY: 3 days PAIN SCORE: 0/10 LOCATION: Bilateral chest FINDINGS: Recent noted trace right apical pneumothorax is less evident on current exam. Redemonstration of biop sied mass in the right upper lobe. Cardiomediastinal contours are stable. Remainder of exam is unchan ged. CONCLUSION: 1. Trace right apical pneumothorax is less evident on current exam. 2. Redemonstration right upper lobe lung mass. Ochoa Aldridge MD on June 21, 2017 at 8:10 Board Certified Radiologist. This report was verified electronically.
[2017-06-21] MEDS: ENALAPRIL MALEATE 5 MG TAB PO SCH (08:54)
[2017-06-21] MEDS ORDERED: CLIN300C5 PO (10:53)
--- NOTE | 2017-06-21 10:56 | HHI.DCPOC ---
Discharge Care Plan Diagnosis: (1) Cellulitis of arm, right (2) Lung nodule, solitary (3) Febrile illness (4) Hypertension (5) Hypothyroidism (6) Hyperlipidemia (7) Heart murmur previously undiagnosed Goals to Promote Your Health - Patient is to complete 5 days of Clindamycin 300mg three times daily - She is to followup with Dr. Shanks next week for review of her pathology results on her lung biopsy - Call Dr. Shanks's office upon discharge to schedule that followup appt. Directions to Meet Your Goals Take your medications as prescribed Follow your dietary instruction Follow activity as directed Keep your appointments as scheduled Take your immunizations and boosters as scheduled If your symptoms worsen call your PCP, if no PCP go to Urgent Care Center or Emergency Room Smoking is Dangerous to Your Health. Avoid second hand smoke Call the 24-hour hour crisis hotline for domestic abuse at Kasie Solomon Jun 21, 2017 10:56
--- NOTE | 2017-06-21 11:10 | HHI.DS ---
Discharge Summary Admission Date Jun 18, 2017 at 21:00 Discharge Date: Jun 21, 2017 Admitting Diagnosis (1) Cellulitis of arm, right Diagnosis: Principal ICD Codes: L03.113 - Cellulitis of right upper limb Status: Acute (2) Febrile illness Diagnosis: Secondary ICD Codes: R50.9 - Fever, unspecified Status: Acute (3) Hypothyroidism Diagnosis: Secondary ICD Codes: E03.9 - Hypothyroidism, unspecified Status: Chronic (4) Hypertension Diagnosis: Secondary ICD Codes: I10 - Essential (primary) hypertension Status: Chronic (5) Hyperlipidemia Diagnosis: Secondary ICD Codes: E78.5 - Hyperlipidemia, unspecified Status: Chronic (6) Lung nodule, solitary Diagnosis: Secondary ICD Codes: R91.1 - Solitary pulmonary nodule Status: Acute Consultants Dr. Rick Shanks - Oncology Procedures CT Guided Lung Biopsy on 06/20/17 Brief History The patient is a 62 year old female with depression, hypothyroidism hyperlipidemia and distant history of breast cancer who presents to the [facility] emergency department with a history of not feeling well for a couple of days.She reports having increased fatigue. She reports having twitching sensations in her right sided chest muscles. She has had increased difficulty sleeping. At lunch time today, she began to have right upper arm pain that moved into her forearm as the day progressed. The pain is a dull aching sensation. She was concerned that this could be cardiac in origin as she has a family history of heart disease. She reports that her last stress test was done approximately 10 years ago. She had a flu shot in the left arm on Sunday. She has had a history of lymph node resection of the right arm 04/1999 related to breast cancer s/p bilateral mastectomy. She has had some sweating. She reports that she has had a cellulitis involving the right arm in the past. She realized when she removed her shirt after she arrived in the emergency department that she has redness and swelling to the right arm. 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 Incidentally, the patient additionally reports that she is recently had an increase in her thyroid hormone supplementation. She reports that she over the last couple of weeks has had intermittent sweating thought to be related to this. Denies cough or shortness of breath. The patient on arrival is also noted to be febrile. The patient incidentally reports that she has dental cleanings every 4 months. She last had a dental cleaning 3 1/2 months ago. Denies any recent major dental work. Denies IV drug abuse history. CBC/BMP: 06/18/17 1835 06/20/17 1003 Significant Findings Laboratory Tests Test 06/18/17 18:35 06/18/17 20:37 06/18/17 20:46 06/19/17 10:04 Neutrophils (%) (Auto) 84.9 % (16.0-70.0) Neutrophils # (Auto) 9.4 TH/MM3 (1.8-7.7) Activated Partial Thromboplast Time 23.9 SEC (24.3-30.1) Total Protein 8.9 GM/DL (6.4-8.2) Sodium Level 135 MEQ/L (136-145) Estimat Glomerular Filtration Rate 67 ML/MIN (>89) 62 ML/MIN (>89) Troponin I LESS THAN 0.02 NG/ML Random Glucose 175 MG/DL (74-106) Albumin 3.0 GM/DL (3.4-5.0) Calcium Level 7.8 MG/DL (8.5-10.1) Aspartate Amino Transf (AST/SGOT) 14 U/L (15-37) Potassium Level 3.3 MEQ/L (3.5-5.1) Test 06/20/17 10:03 Random Glucose 136 MG/DL (74-106) Calcium Level 8.4 MG/DL (8.5-10.1) Imaging Last Impressions Chest X-Ray 06/21/17 0800 Signed Impressions: Service Date/Time: June 07:59 - CONCLUSION: 1. Trace right apical pneumothorax is less evident on current exam. 2. Redemonstration right upper lobe lung mass. Ochoa Aldridge MD Lung Biopsy CT 06/20/17 0000 Signed Impressions: Service Date/Time: Tuesday, June 20, 2017 14:22 - CONCLUSION: Successful CT guided biopsy. Tiny apical pneumothorax. Hector Lees MD Abdomen/Pelvis CT 06/19/17 0000 Signed Impressions: Service Date/Time: Monday, June 19, 2017 21:05 - CONCLUSION: 1. Negative for metastatic disease in the abdomen and pelvis. Previous cholecystectomy. No acute findings. Tor Mas MD Chest CT 06/18/172037 Signed Impressions: Service Date/Time: Sunday, June 18, 2017 21:10 - CONCLUSION: 1. 2.2 x 1.7 cm irregular nodule right upper lobe. Differential diagnosis includes malignancy. This may be amenable to CT-guided biopsy. Tor Mas MD PE at Discharge GENERAL: NAD, AAOx3 SKIN: Erythematous confluence patch in the right medial arm and forearm along what appears to be a dermatomal distribution, improving. Tenderness to palpation noted. No open wounds or discharge. CARDIO: Regular, 2/6 murmur noted RESP: CTA bilaterally. ABD: +BS, soft, non-tender, nondistended. EXT: Extremities without clubbing, cyanosis, or edema. Hospital Course Pt is a 62 year old female with depression, hypothyroidism, hyperlipidemia and distant history of breast cancer who presented to [facility] emergency department with a history of not feeling well for a couple of days. She reported having increased fatigue, a twitching sensations in her right sided chest muscles, and increased difficulty sleeping. On the day of admission she began to have right upper arm pain that moved into her forearm as the day progressed. She reported that she has had a cellulitis involving the right arm in the past. She realized when she removed her shirt after she arrived in the emergency department that she has redness and swelling to the right arm. 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 Cellulitis of arm, right Question of etiology. She does have what appears slightly dermatomal distribution of this rash with some vesicles on the outer margins which are tender to palpation. She was placed on broad-spectrum IV antibiotics, Vancomycin , with improvement. Pt was also started on Valtrex 1000mg po Q12H (given 06/18- 06/20). White blood cell count normal during the admission and she had some low- grade fever noted, none since 06/19. Pt will be switched to oral Clindamycin 300mg TID x 5 more days upon discharge. Febrile illness Abnormal CT chest Questionable etiology. She was found to have an abnormality on lung imaging at admission. She has a slight murmur which is apparently new for her noted at admission. Her 2D echo noted estimated EF 55-60%, trace to mild mitral valve regurg, aortic valve sclerosis, mild tricuspid valve regurg and estimated PA pressure 41mmHG. Blood cultures negative x 2 days at the time of discharge. I do not anticipate there to be any growth from the blood culture but this will be followed up on by her PCP upon discharge. Chest CT per checked due to abnormality noted on CXR at admission. The CT revealed a 2.2x1.7 cm irregular nodule right upper lobe. Differential diagnosis includes malignancy. CT abdomen/pelvis negative for any evidence of metastatic disease. Pt underwent CT guided biopsy on 06/20/17. Following the biopsy she did have a trace right apical pneumothorax. Repeat CXR on the morning of discharge noted the trace right apical pneumothorax was less evident. Radiologist cleared her for discharge. Pt was encouraged to continue deep breathing. She will followup with Dr. Shanks, next week for biopsy results and further recommendations. There were orders placed for cultures of the lung biopsy prior to the biopsy but there were not any specimen sent to the Micro lab. I spoke with Micro lab at [place] who then spoke with pathology department and there was only one specimen sent to the pathology lab in formalin which the micro lab cannot use after the specimen has been placed in the formalin. Hypothyroidism Pt had a recent increase of Synthroid 175 g a day. Repeat TSH 2.42 Hypertension She will be continued on her home dose of medication. Hyperlipidemia She will be continued on home medication Pt Condition on Discharge: Stable Discharge Disposition: Discharge Home Discharge Instructions DIET: Follow Instructions for: Heart Healthy Diet Activities you can perform: Regular-No Restrictions Follow up Referrals: PCP Follow-up - [address] Shanks New Medications: Clindamycin (Clindamycin) 300 Mg Cap 300 MG PO TID for Infection, #15 CAP 0 Refills Continued Medications: Enalapril (Enalapril) 5 Mg Tab 5 MG PO DAILY, #30 TAB 0 Refills Levothyroxine (Synthroid) 175 Mcg Tab 175 MCG PO DAILY for Thyroid, #30 TAB 0 Refills Pravastatin (Pravastatin) 40 Mg Tab 40 MG PO DAILY for Cholesterol Management, #30 TAB 0 Refills Sertraline (Sertraline) 100 Mg Tab 100 MG PO DAILY, #30 TAB 0 Refills Kasie Solomon Jun 21, 2017 11:10 Rick Escobar MD Jun 21, 2017 13:26
[2017-06-21 12:00] VITALS: BP 117/68; PULSE 76; RESP 17; TEMP 98.3; O2SAT 98
[2017-06-21] MEDS ORDERED: CLINDAMYCIN 150 MG CAP PO SCH (13:00)
[2017-06-21] MEDS ORDERED: PHARMACY ORDERED LAB ONE (20:45)
== END 2017-06-21 12:27 | disposition home or self-care (01) ==
LOC: NEPE 18:07 → NEDA 21:00 → INTOOBSV 21:00 → N07A 22:15
PROVIDERS: ADMIT Hospitalist; ATTEND Hospitalist
DX: L03.113 Cellulitis of right upper limb (principal); R91.1 Solitary pulmonary nodule; J95.811 Postprocedural pneumothorax; E03.9 Hypothyroidism, unspecified; I10 Essential (primary) hypertension; E78.5 Hyperlipidemia, unspecified; R53.83 Other fatigue; Z85.3 Personal history of malignant neoplasm of breast; M54.2 Cervicalgia; R07.89 Other chest pain; G89.29 Other chronic pain; M79.89 Other specified soft tissue disorders; G47.00 Insomnia, unspecified; Z82.49 Family history of ischemic heart disease and other diseases of the circulatory system; Z23 Encounter for immunization; E78.00 Pure hypercholesterolemia, unspecified
CPT/HCPCS: 32405; 71010; 71020; 71260; 74177; 77012; 80048; 80053; 82550; 82552; 83605; 83735; 84443; 84484; 85025; 85610; 85730; 87015; 87040; 88305; 88341; 88342; 90732; 93005; 93306; 96361; 96365; 96366; 96375; 99285; G0008; G0378; J2250; J2543; J3010; J3370; J7030; J7040; J7050; Q9963; Q9967; 90471; 96374

== ENCOUNTER → 2017-07-24 | Outpatient (CLI) | payer OTHER ==
[~2017-07-24] MED LIST changes: -ASPI81TA82 PO; +CLIN300C5 PO; -DIPH25 PO; +ENAL5TAB PO; -IBUP800 PO; -LEVO.15 PO; +PERC7.5T13 PO; +SERT-129 PO; +SYNT175T PO; -ZOLO50TA PO
--- NOTE | 2017-07-24 11:57 | RADRPT ---
EXAM DATE/TIME: 07/24/2017 11:33 [facility] COMPARISON: CHEST PA & LAT, June 18, 2017, 18:44. CT THORAX W CONTRAST, June 18, 2017, 21:10. CHEST EXP IRATION ONLY, June 21, 2017, 7:59. INDICATIONS : Evaluate for pneumonia, pneumothorax and communicable diseases. Pre-op Right lung surgery MEDICAL HISTORY : Carcinoma, breast. Hypertension Cardiovascular disease. SURGICAL HISTORY : Cholecystectomy. Bilateral mastectomy ENCOUNTER: Initial ACUITY: 1 day PAIN SCORE: 0/10 LOCATION: chest FINDINGS: Surgical clips again noted in the right axilla and potentially right medial breast. Bony structures a ppear intact with normal heart, aorta, and pulmonary vascularity. Small patchy area of density in the right upper lobe laterally remains present and unchanged with no new acute superimposed process. CONCLUSION: Stable chest as described. No acute cardiopulmonary process. Ar Wei MD on July 24, 2017 at 11:52 Board Certified Radiologist. This report was verified electronically.
[2017-07-24 13:06] LABS: HEMATOCRIT 43.3 % (35.0-46.0); HEMOGLOBIN 14.5 GM/DL (11.6-15.3); MEAN CORPUSCULAR HEMOGLOBIN 32.1 PG (27.0-34.0); MEAN CORPUSCULAR HGB CONC 33.5 % (32.0-36.0); MEAN PLATELET VOLUME 8.1 FL (7.0-11.0); PLATELET COUNT 381 TH/MM3 (150-450); RED BLOOD COUNT 4.51 MIL/MM3 (4.00-5.30); RED CELL DISTRIBUTION WIDTH 13.5 % (11.6-17.2); WHITE BLOOD COUNT 4.7 TH/MM3 (4.0-11.0)
[2017-07-24 13:14] LABS: PROTHROMBIN TIME - PATIENT 10.1 SEC (9.8-11.6)
[2017-07-24 13:29] LABS: BILIRUBIN, URINE NEG (NEG); BLOOD, URINE NEG (NEG); GLUCOSE,URINE NEG (NEG); KETONE, URINE NEG (NEG); MUCUS URINE FEW /lpf (OCC); NITRITE,URINE NEG (NEG); PH, URINE 5.5 (5.0-8.5); URINE COLOR LIGHT-YELLOW (YELLW/STRAW); URINE LEUKOCYTE ESTERASE NEG (NEG)
[2017-07-24 13:37] LABS: BICARBONATE 27.8 MEQ/L (21.0-32.0); CALCIUM 9.5 MG/DL (8.5-10.1); CREATININE 0.75 MG/DL (0.50-1.00)
== END ==
LOC: CPRE 10:42
PROVIDERS: ATTEND Thoracic Surgery (Cardiothoracic Vascular Surgery)
DX: Z01.812 Encounter for preprocedural laboratory examination (principal); Z01.811 Encounter for preprocedural respiratory examination
CPT/HCPCS: 36415; 71046; 80048; 81001; 85027; 85610; 85730; 86850; 86900; 86901

== ENCOUNTER 2017-07-26 05:22 | Inpatient (IN) | payer OTHER ==
[2017-07-26] MEDS: CHLORHEXIDINE GLUCONATE 2 % 1 PACK (2 CLOTHS) TOPICAL (05:30)
[2017-07-26] MEDS ORDERED: METOPROLOL TARTRATE 25 MG TAB PO (05:45)
[2017-07-26] MEDS ORDERED: SODIUM CHLORID 0.9% 500 ML IV (05:45)
[2017-07-26] MEDS: LACTATED RINGER'S 1000 ML IV (06:08)
[2017-07-26] MEDS: POVIDONE IODINE 5% (ANTISEPSIS KIT) 4 APPLICATIONS EACH NARE (06:09)
[2017-07-26] MEDS: BUPIVACAINE HCL PF 0.5% 30 ML VIAL (07:01)
[2017-07-26] MEDS ORDERED: HEPARIN SODIUM - SQ 10,000 UNITS/ML VIAL (07:01)
[2017-07-26] MEDS: ceFAZolin 2 GM PREMIX 50 ML (08:07)
[2017-07-26] MEDS: BUPIVACAINE HCL PF 0.5% 10 ML VIAL (08:30)
[2017-07-26] MEDS ORDERED: ACETAMINOPHEN 325 MG TAB PO (10:45)
[2017-07-26] MEDS ORDERED: SODIUM CHLORIDE 0.9% FLUSH 10 ML FLUSH IV FLUSH (10:45)
[2017-07-26] MEDS ORDERED: NALOXONE HCL 0.4 MG/ML AMP IV PUSH (10:45)
[2017-07-26] MEDS ORDERED: POTASSIUM CHLOR 20 MEQ PREMIX 100 ML IV (10:45)
[2017-07-26] MEDS ORDERED: Post-op Orders (for Pharmacy) OTHER (11:03)
[2017-07-26] MEDS ORDERED: DO NOT ADM ANY ANTICOAGULANT DRUGS (11:09)
[2017-07-26] MEDS: *morphine SULFATE 4 MG/ML PERIprocedure ONLY (11:13)
[2017-07-26] MEDS ORDERED: MIDAZOLAM HCL 2 MG/2 ML VIAL (11:18)
[2017-07-26] MEDS: *morphine SULFATE 10 MG/ML PERIprocedure ONLY (11:30)
[2017-07-26] MEDS: ROCURONIUM INJ 50 MG/5 ML SYRINGE IV PUSH (12:00)
[2017-07-26] MEDS: GLYCOPYRROLATE 1 MG/5 ML SYRINGE IV PUSH (12:00)
[2017-07-26] MEDS: ONDANSETRON HCL 4 MG/2 ML VIAL IV (12:00)
[2017-07-26] MEDS: ePHEDrine/NS 25 MG/5 ML SYRINGE IV (12:00)
[2017-07-26] MEDS: NS 500 ML (EXCEL BAG) INJ 500 ML IV (12:00)
[2017-07-26] MEDS: DEXAMETHASONE SOD PHOS 4 MG/ML VIAL IV (12:00)
[2017-07-26] MEDS: PHENYLEPH/NS 1000 MCG/10 ML SYR IV (12:00)
[2017-07-26] MEDS: ESMOLOL HCL 100 MG/10 ML VIAL IV (12:00)
[2017-07-26] MEDS: NORMOSOL R INJ 1,000 ML IV (12:00)
[2017-07-26] MEDS: LIDOCAINE HCL 1% PF 5 ML SYRINGE OTHER (12:00)
[2017-07-26] MEDS: NEOSTIGMINE 5 MG/5 ML SYRINGE IV PUSH (12:00)
[2017-07-26] MEDS: PROPOFOL 200 MG/20 ML AMP IV (12:00)
[2017-07-26] MEDS: *HYDROmorphone PF 1 MG VIAL PERIprocedural Use ONLY (12:08)
[2017-07-26] MEDS: KETOROLAC TROMETHAMINE 30 MG/ML (IVP) VIAL IV PUSH ×3 (12:28→23:39)
[2017-07-26] MEDS: LACTATED RINGER'S 1000 ML INJ 1,000 ML IV (12:30)
[2017-07-26] MEDS: MORPHINE SULFATE 30 MG/30 ML PCA IV (12:32)
[2017-07-26] MEDS: PCA - TOTAL MG MORPHINE DELIVERED PER SHIFT ×2 (16:30→22:00)
[2017-07-26] MEDS ORDERED: SERTRALINE HCL 100 MG TAB PO (21:00)
[2017-07-26] MEDS: SODIUM CHLORIDE 0.9% FLUSH 10 ML FLUSH IV FLUSH (21:18)
[2017-07-26] MEDS: SERTRALINE HCL 50 MG TAB PO (21:18)
[2017-07-26] MEDS: DOCUSATE CALCIUM 240 MG CAP PO (21:18)
[2017-07-26] MEDS: PANTOPRAZOLE SOD 40 MG DELAYED RELEASE TAB PO (21:18)
[2017-07-26] MEDS: PRAVASTATIN SOD 40 MG TAB PO (21:18)
[2017-07-27 05:03] LABS: AUTOMATED NEUTROPHIL # 5.6 TH/MM3 (1.8-7.7); BASOPHIL % 0.4 % (0.0-2.0); EOSINOPHIL % 0.3 % (0.0-4.0); HEMATOCRIT 32.3 % (35.0-46.0); HEMO FLAGS DIFF FINAL; HEMOGLOBIN 11.3 GM/DL (11.6-15.3); LYMPH % 21.3 % (9.0-44.0); LYMPHOCYTE # 1.6 TH/MM3 (1.0-4.8); MEAN CELL VOLUME 94.8 FL (80.0-100.0); MEAN CORPUSCULAR HEMOGLOBIN 33.1 PG (27.0-34.0); MEAN CORPUSCULAR HGB CONC 34.9 % (32.0-36.0); MEAN PLATELET VOLUME 7.7 FL (7.0-11.0); MONO % 4.9 % (0.0-8.0); MONOCYTE # 0.4 TH/MM3 (0-0.9); NEUT % 73.1 % (16.0-70.0); PLATELET COUNT 326 TH/MM3 (150-450); RED BLOOD COUNT 3.41 MIL/MM3 (4.00-5.30); RED CELL DISTRIBUTION WIDTH 13.5 % (11.6-17.2); WHITE BLOOD COUNT 7.6 TH/MM3 (4.0-11.0)
[2017-07-27 05:40] LABS: ANION GAP 4 MEQ/L (5-15); BICARBONATE 31.3 MEQ/L (21.0-32.0); BLOOD UREA NITROGEN 10 MG/DL (7-18); CALCIUM 7.4 MG/DL (8.5-10.1); CHLORIDE 105 MEQ/L (98-107); CREATININE 0.72 MG/DL (0.50-1.00); GLOMERULAR FILTRATION RATE 82 ML/MIN (>89); GLUCOSE,RANDOM 106 MG/DL (74-106); POTASSIUM 3.8 MEQ/L (3.5-5.1); SODIUM (NA) 140 MEQ/L (136-145)
[2017-07-27 05:53] LABS: CALCIUM-PROTEIN CORRECTED 7.9 MG/DL (8.5-10.1); TOTAL PROTEIN 6.2 GM/DL (6.4-8.2)
[2017-07-27] MEDS: LEVOTHYROXINE SODIUM 25 MCG TAB PO (05:58)
[2017-07-27] MEDS: LEVOTHYROXINE SODIUM 150 MCG TAB PO (05:59)
[2017-07-27] MEDS: KETOROLAC TROMETHAMINE 30 MG/ML (IVP) VIAL IV PUSH (05:59)
[2017-07-27] MEDS: PCA - TOTAL MG MORPHINE DELIVERED PER SHIFT ×3 (05:59→22:00)
[2017-07-27] MEDS: ONDANSETRON HCL 4 MG/2 ML VIAL IV PUSH (06:19)
[2017-07-27] MEDS: ENALAPRIL MALEATE 5 MG TAB PO (10:00)
[2017-07-27] MEDS: MAGNESIUM HYDROXIDE SUSP 30 ML CUP PO (10:00)
[2017-07-27] MEDS: SODIUM CHLORIDE 0.9% FLUSH 10 ML FLUSH IV FLUSH ×2 (10:00→19:52)
[2017-07-27] MEDS: MORPHINE SULFATE 30 MG/30 ML PCA IV (10:16)
[2017-07-27] MEDS: LACTATED RINGER'S 1000 ML INJ 1,000 ML IV (13:00)
[2017-07-27] MEDS: PANTOPRAZOLE SOD 40 MG DELAYED RELEASE TAB PO (19:51)
[2017-07-27] MEDS: DOCUSATE CALCIUM 240 MG CAP PO (19:51)
[2017-07-27] MEDS: PRAVASTATIN SOD 40 MG TAB PO (19:51)
[2017-07-27] MEDS: SERTRALINE HCL 50 MG TAB PO (22:16)
[2017-07-28] MEDS: diphenhydrAMINE HCL 25 MG CAP PO (00:39)
[2017-07-28] MEDS: RESP: ALBUTEROL 2.5 MG/3 ML NEB (PRN) NEB ×4 (00:59→20:15)
[2017-07-28] MEDS: MORPHINE SULFATE 30 MG/30 ML PCA IV ×2 (04:23→22:51)
[2017-07-28] MEDS: LEVOTHYROXINE SODIUM 150 MCG TAB PO (05:55)
[2017-07-28] MEDS: LEVOTHYROXINE SODIUM 25 MCG TAB PO (05:55)
[2017-07-28] MEDS: PCA - TOTAL MG MORPHINE DELIVERED PER SHIFT ×3 (05:59→22:00)
[2017-07-28] MEDS: SODIUM CHLORIDE 0.9% FLUSH 10 ML FLUSH IV FLUSH ×2 (08:05→21:00)
[2017-07-28] MEDS: ENALAPRIL MALEATE 5 MG TAB PO (08:05)
[2017-07-28] MEDS: LACTATED RINGER'S 1000 ML INJ 1,000 ML IV (13:00)
[2017-07-28] MEDS: PRAVASTATIN SOD 40 MG TAB PO (20:59)
[2017-07-28] MEDS: PANTOPRAZOLE SOD 40 MG DELAYED RELEASE TAB PO (20:59)
[2017-07-28] MEDS: DOCUSATE CALCIUM 240 MG CAP PO (20:59)
[2017-07-28] MEDS: SERTRALINE HCL 50 MG TAB PO (21:01)
[2017-07-29] MEDS: PCA - TOTAL MG MORPHINE DELIVERED PER SHIFT ×2 (06:00→14:00)
[2017-07-29] MEDS: LEVOTHYROXINE SODIUM 25 MCG TAB PO (06:14)
[2017-07-29] MEDS: LEVOTHYROXINE SODIUM 150 MCG TAB PO (06:14)
[2017-07-29] MEDS: SODIUM CHLORIDE 0.9% FLUSH 10 ML FLUSH IV FLUSH ×2 (08:23→20:08)
[2017-07-29] MEDS: ENALAPRIL MALEATE 5 MG TAB PO (08:23)
[2017-07-29] MEDS: RESP: ALBUTEROL 2.5 MG/3 ML NEB (PRN) NEB (11:36)
[2017-07-29] MEDS: LACTATED RINGER'S 1000 ML INJ 1,000 ML IV (15:40)
[2017-07-29] MEDS: MORPHINE SULFATE 30 MG/30 ML PCA IV (17:13)
[2017-07-29] MEDS: SERTRALINE HCL 50 MG TAB PO (20:08)
[2017-07-29] MEDS: DOCUSATE CALCIUM 240 MG CAP PO (20:08)
[2017-07-29] MEDS: PANTOPRAZOLE SOD 40 MG DELAYED RELEASE TAB PO (20:08)
[2017-07-29] MEDS: ACETAMINOPHEN/HYDROcodone 325 MG/5 MG TAB PO ×2 (20:08→23:38)
[2017-07-29] MEDS: PRAVASTATIN SOD 40 MG TAB PO (20:08)
[2017-07-29] MEDS: diphenhydrAMINE HCL 25 MG CAP PO (23:33)
[2017-07-30] MEDS: ACETAMINOPHEN/HYDROcodone 325 MG/5 MG TAB PO ×2 (04:09→08:48)
[2017-07-30] MEDS: LEVOTHYROXINE SODIUM 125 MCG TAB PO (05:39)
[2017-07-30] MEDS: LEVOTHYROXINE SODIUM 50 MCG TAB PO (05:39)
[2017-07-30] MEDS: ENALAPRIL MALEATE 5 MG TAB PO (08:47)
[2017-07-30] MEDS: SODIUM CHLORIDE 0.9% FLUSH 10 ML FLUSH IV FLUSH ×2 (08:49→21:00)
[2017-07-30] MEDS ORDERED: NALOXONE HCL 0.4 MG/ML AMP IV PUSH (10:30)
[2017-07-30] MEDS: MORPHINE SULFATE 30 MG/30 ML PCA IV (12:38)
[2017-07-30] MEDS: LACTATED RINGER'S 1000 ML INJ 1,000 ML IV (12:39)
[2017-07-30] MEDS: PCA - TOTAL MG MORPHINE DELIVERED PER SHIFT ×2 (14:00→22:43)
[2017-07-30] MEDS: RESP: ALBUTEROL 2.5 MG/3 ML NEB (PRN) NEB (20:48)
[2017-07-30] MEDS: DOCUSATE CALCIUM 240 MG CAP PO (21:24)
[2017-07-30] MEDS: SERTRALINE HCL 50 MG TAB PO (21:25)
[2017-07-30] MEDS: PANTOPRAZOLE SOD 40 MG DELAYED RELEASE TAB PO (21:25)
[2017-07-30] MEDS: PRAVASTATIN SOD 40 MG TAB PO (21:25)
[2017-07-31] MEDS: PCA - TOTAL MG MORPHINE DELIVERED PER SHIFT (06:03)
[2017-07-31] MEDS: LEVOTHYROXINE SODIUM 125 MCG TAB PO (06:03)
[2017-07-31] MEDS: LEVOTHYROXINE SODIUM 50 MCG TAB PO (06:03)
[2017-07-31] MEDS ORDERED: ATROPINE SULFATE 1 MG/10 ML SYRINGE (06:11)
[2017-07-31] MEDS: ENALAPRIL MALEATE 5 MG TAB PO (08:14)
[2017-07-31] MEDS: SODIUM CHLORIDE 0.9% FLUSH 10 ML FLUSH IV FLUSH (08:14)
== END 2017-07-31 11:35 | disposition home or self-care (01) | DRG 164 ==
LOC: HSDI 05:22 → HCPC 13:32
PROC: 0BTC4ZZ Resection of Right Upper Lung Lobe, Percutaneous Endoscopic Approach (ICD-10-PCS; principal; 2017-07-26 07:25)
DX: C34.11 Malignant neoplasm of upper lobe, right bronchus or lung (principal); J93.82 Other air leak; I10 Essential (primary) hypertension; E03.9 Hypothyroidism, unspecified; E78.5 Hyperlipidemia, unspecified; R05 Cough; Z79.82 Long term (current) use of aspirin; Z85.3 Personal history of malignant neoplasm of breast; Z87.891 Personal history of nicotine dependence; Z90.13 Acquired absence of bilateral breasts and nipples
CPT/HCPCS: 36415; 71045; 71046; 80048; 81001; 84155; 85025; 85027; 85610; 85730; 86850; 86900; 86901; 88307; 88309; 94150; 94640; 94664